=== PATIENT | male | born 1990 | race Caucasian/White ===

== ENCOUNTER 2019-07-22 13:04 | Emergency (ER) | payer BC, OTHER ==
[2019-07-22 13:55] VITALS: TEMP 99.6
[2019-07-22] MEDS ORDERED: KETOROLAC 30 MG/ML 1 ML VIAL IVP STA (16:28)
--- NOTE | 2019-07-22 16:28 | ED ---
General Adult HPI - General Chief complaint: Headache Stated complaint: stiff neck, headache Time Seen by Provider: 07/22/19 15:45 Source: patient Mode of arrival: ambulatory Limitations: no limitations - History of Present Illness Initial comments: Patient is a 29-year-old male presenting to emergency Department with a chief complaint of a headache and fever. Patient reports he developed the sudden onset of respiratory type symptoms including a sore throat, rhinorrhea and sinus congestion about 3 days ago and have not resolved. Patient reports she also developed a headache within the period along with neck stiffnes s especially with left and right rotation. Patient reports that he felt chills but never actually measured his temperature. Patient denies any chest pain, abdominal pain, nausea vomiting or diarrhea. Patient does report a productive cough with yellow sputum production. Patient is not a smoker. Patient reports taking Tylenol with minimal improvement. Patient does report a headache near the frontal maxillary sinus. Patient denies focal neural deficits or altered mental status. Patient does report photosensitivity but states that he does have migraine history. - Related Data Previous Rx's Medication Instructions Recorded Amoxicillin/Potassium Clav 1 tab PO Q12HR #14 tab 07/22/19 [Augmentin 875-125 Tablet] Allergies Allergy/AdvReac Type Severity Reaction Status Date / Time No Known Allergies Allergy Verified 07/22/19 13:54 Review of Systems ROS Statement: Those systems with pertinent positive or pertinent negative responses have been documented in the HPI. ROS Other: All systems not noted in ROS Statement are negative. Past Medical History Past Medical History: No Reported History History of Any Multi-Drug Resistant Organisms: None Reported Past Surgical History: No Surgical Hx Reported Past Psychological History: No Psychological Hx Reported Smoking Status: Never smoker Past Alcohol Use History: Occasional Past Drug Use History: None Reported General Exam Limitations: no limitations General appearance: alert, in no apparent distress Head exam: Present: atraumatic, normocephalic, normal inspection Eye exam: Present: normal appearance, PERRL, EOMI Pupils: Present: normal accommodation ENT exam: Present: normal exam, normal oropharynx, mucous membranes moist, TM's normal bilaterally, normal external ear exam, other (Frontal sinus tenderness. Only mild tenderness in the maxillary sinus.) Neck exam: Present: normal inspection, full ROM. Absent: meningismus, lymphadenopathy, other (No nuchal rigidity. Negative Brudzinski sign. Negative Kernig sign.) Respiratory exam: Present: normal lung sounds bilaterally Cardiovascular Exam: Present: regular rate, normal rhythm, normal heart sounds Extremities exam: Present: normal inspection, full ROM, normal capillary refill, other (+2 dorsalis pedis and posterior tibialis bilaterally.) Back exam: Present: normal inspection, full ROM Neurological exam: Present: alert, oriented X3 Psychiatric exam: Present: normal affect, normal mood Skin exam: Present: warm, intact, normal color Course Vital Signs 07/22/19 07/22/19 13:50 18:06 Temperature 99.6 F Pulse Rate 82 80 Respiratory 18 16 Rate Blood Pressure 142/82 134/80 O2 Sat by Pulse 96 98 Oximetry Medical Decision Making - Medical Decision Making Patient is a 29-year-old male presenting to the emergency department with a chief complaint of a headache. Patient reports that he has developed a headache over the past 3 days which initially started with an upper respiratory infection. Patient continues to have a sore throat and intermittent congestion or rhinorrhea. Patient reports the headache is localized near the frontal sinus. Patient does report mild photosensitivity but no nausea or vomiting. Patient reports he had a fever but never actually measured at home. In the ED patient is afebrile. Patient does report a stiff neck and physical examination no nuchal rigidity was appreciated. Patient has negative Kernig's and Brudzinski sign. Patient also reported a cough with no sputum production. Chest x-ray is unremarkable. I have low suspicion for meningitis. I suspect the patient to have a sinus type headache due to possible sinusitis. His headache has only been ongoing for 3 days which is still most likely a viral cause to the sinusitis. I prescribed the patient Augmentin on watch and wait bases. Patient advised to take the medication if his symptoms do not improve over the next few days. Patient given Reglan, Benadryl and Toradol in the ED. Patient advised to alternate between Tylenol and ibuprofen for pain control. Patient advised to use [id number] decongestants. Patient advised to follow with primary care. Strict return parameters were thoroughly discussed with patient was understanding and agreeable. Case discussed with physician. - Lab Data Result diagrams: 07/22/19 17:15 07/22/19 17:15 Lab Results 07/22/19 07/22/19 07/22/19 Range/Units 17:15 17:15 17:15 WBC 5.7 (3.8-10.6) k/uL RBC 5.16 (4.30-5.90) m/uL Hgb 15.9 (13.0-17.5) gm/dL Hct 45.2 (39.0-53.0) % MCV 87.6 (80.0-100.0) fL MCH 30.8 (25.0-35.0) pg MCHC 35.1 (31.0-37.0) g/dL RDW 15.9 H (11.5-15.5) % Plt Count 165 (150-450) k/uL Neutrophils % 61 % Lymphocytes % 24 % Monocytes % 7 % Eosinophils % 2 % Basophils % 2 % Neutrophils # 3.5 (1.3-7.7) k/uL Lymphocytes # 1.4 (1.0-4.8) k/uL Monocytes # 0.4 (0-1.0) k/uL Eosinophils # 0.1 (0-0.7) k/uL Basophils # 0.1 (0-0.2) k/uL Sodium 140 (137-145) mmol/L Potassium 4.3 (3.5-5.1) mmol/L Chloride 100 (98-107) mmol/L Carbon Dioxide 27 (22-30) mmol/L Anion Gap 13 mmol/L BUN 12 (9-20) mg/dL Creatinine 0.96 (0.66-1.25) mg/dL Est GFR (CKD-EPI)AfAm >90 (>60 ml/min/1.73 sqM) Est GFR (CKD-EPI)NonAf >90 (>60 ml/min/1.73 sqM) Glucose 98 (74-99) mg/dL Calcium 9.6 (8.4-10.2) mg/dL Total Bilirubin 0.7 (0.2-1.3) mg/dL AST 68 H (17-59) U/L ALT 84 H (21-72) U/L Alkaline Phosphatase 79 (38-126) U/L Total Protein 8.2 (6.3-8.2) g/dL Albumin 4.8 (3.5-5.0) g/dL Influenza Type A RNA Not Detected (Not Detectd) Influenza Type B (PCR) Not Detected (Not Detectd) Disposition Clinical Impression: Sinus headache Disposition: HOME SELF-CARE Condition: Stable Instructions (If sedation given, give patient instructions): Acute Headache (ED) Additional Instructions: Please take prescribed medication as directed. Please return to emergency department if symptoms worsen. Please follow-up with primary care. Prescriptions: Amoxicillin/Potassium Clav [Augmentin 875-125 Tablet] 1 tab PO Q12HR #14 tab Is patient prescribed a controlled substance at d/c from ED?: No Referrals: None,Stated [Primary Care Provider] - 1-2 days Time of Disposition: 17:59
--- NOTE | 2019-07-22 16:48 | XR ---
EXAMINATION TYPE: XR chest 2V DATE OF EXAM: 07/22/2019 COMPARISON: None HISTORY: 29-year-old male productive cough TECHNIQUE: PA and lateral views FINDINGS: The cardiomediastinal silhouette, aorta, and pulmonary vasculature are within normal limits. Lungs an d pleural spaces are clear. IMPRESSION: No acute cardiopulmonary process.
[2019-07-22 17:44] LABS: ALT 84 U/L (21-72); AST 68 U/L (17-59); African American GFR (CKD) >90 (>60 ml/min/1.73 sqM); Albumin 4.8 g/dL (3.5-5.0); Alkaline Phosphatase 79 U/L (38-126); Anion Gap 13 mmol/L; Blood Urea Nitrogen 12 mg/dL (9-20); Calcium 9.6 mg/dL (8.4-10.2); Carbon Dioxide 27 mmol/L (22-30); Chloride 100 mmol/L (98-107); Glucose 98 mg/dL (74-99); Potassium 4.3 mmol/L (3.5-5.1); Sodium 140 mmol/L (137-145); Total Bilirubin 0.7 mg/dL (0.2-1.3); Total Protein 8.2 g/dL (6.3-8.2)
[2019-07-22 17:45] LABS: Basophils # (A) 0.1 k/uL (0-0.2); Basophils % (A) 2 %; Eosinophils # (A) 0.1 k/uL (0-0.7); Eosinophils % (A) 2 %; HCT 45.2 % (39.0-53.0); HGB 15.9 gm/dL (13.0-17.5); Lymphocytes # (A) 1.4 k/uL (1.0-4.8); Lymphocytes % (A) 24 %; MCH 30.8 pg (25.0-35.0); MCHC 35.1 g/dL (31.0-37.0); MCV 87.6 fL (80.0-100.0); Mean Platelet Volume 8.1; Monocytes # (A) 0.4 k/uL (0-1.0); Monocytes % (A) 7 %; Neutrophils # (A) 3.5 k/uL (1.3-7.7); Neutrophils % (A) 61 %; Platelet Count 165 k/uL (150-450); RBC 5.16 m/uL (4.30-5.90); RDW 15.9 % (11.5-15.5); WBC 5.7 k/uL (3.8-10.6)
[2019-07-22] MEDS ORDERED: METOCLOPRAMIDE 5 MG/ML 2 ML VIAL IVP STA (17:46)
[2019-07-22] MEDS ORDERED: diphenhydrAMINE 50 MG/ML 1 ML VIAL IVP STA (17:46)
[2019-07-22] MEDS ORDERED: Acetaminophen-Codeine 300-30mg TAB PO STA (17:46)
[2019-07-22 18:09] VITALS: BP 134/80; PULSE 80; RESP 16
== END 2019-07-22 18:06 | disposition home or self-care (01) ==
LOC: EC 13:04
DX: R51 Headache (principal); R50.9 Fever, unspecified; R09.81 Nasal congestion; M43.6 Torticollis; R05 Cough
CPT/HCPCS: 36415; 80053; 85025; 87502; 71046; 99284; 96374; 96375; J1200; J1885

== ENCOUNTER 2021-11-23 17:57 | Observation (INO) | payer BC, OTHER ==
--- NOTE | 2021-11-23 18:21 | ED ---
General Adult HPI - General Chief complaint: Chest Pain Stated complaint: Chest pain Time Seen by Provider: 11/23/21 18:00 Source: patient, RN notes reviewed, old records reviewed Mode of arrival: wheelchair Limitations: no limitations - History of Present Illness Initial comments: This is a 31-year-old male who presents emergency Department with no significant past medical history. Patient denies diabetes hypertension high cholesterol. Patient denies any smoking history. Patient states his grandfather did at 58. Patient also states that he had a brother who had a heart attack at 34. Patient states he comes in today because he has some left-sided chest pain which is been constant for 3 days he states pressing on it definitely makes it worse or taking a deep breath deftly makes it worse. Patient states he is not short of breath ever but it hurts when he takes a deep breath on occasion. Patient states sometimes when he has the pain he has a tingling sensation in his left arm as well. Patient states he cannot make that tingling sensation come or go. Patient states currently he is not having any. Patient denies any fever chills or cough. Patient denies any abdominal pain patient denies nausea vomiting diarrhea. Patient denies any recent heavy lifting or exercising. Patient denies any recent injury or trauma. - Related Data Home Medications Medication Instructions Recorded Confirmed Ascorbic Acid [Vitamin C] 1,000 mg PO DAILY 11/23/21 11/23/21 Cyanocobalamin (Vitamin B-12) 1,000 mcg PO DAILY 11/23/21 11/23/21 [Vitamin B-12] Allergies Allergy/AdvReac Type Severity Reaction Status Date / Time No Known Allergies Allergy Verified 11/23/21 18:32 Review of Systems ROS Statement: Those systems with pertinent positive or pertinent negative responses have been documented in the HPI. ROS Other: All systems not noted in ROS Statement are negative. Past Medical History Past Medical History: No Reported History History of Any Multi-Drug Resistant Organisms: None Reported Past Surgical History: No Surgical Hx Reported Past Psychological History: No Psychological Hx Reported Smoking Status: Never smoker Past Alcohol Use History: Occasional Past Drug Use History: None Reported General Exam - General Exam Comments Initial Comments: GENERAL: Patient is well-developed and well-nourished. Patient is nontoxic and well- hydrated and is in no acute distress. ENT: Neck is soft and supple. No significant lymphadenopathy is noted. Oropharynx is clear. Moist mucous membranes. Neck has full range of motion without eliciting any pain. EYES: The sclera were anicteric and conjunctiva were pink and moist. Extraocular movements were intact and pupils were equal round and reactive to light. Eyelids were unremarkable. PULMONARY: Unlabored respirations. Good breath sounds bilaterally. No audible rales rhonchi or wheezing was noted. CARDIOVASCULAR: There is a regular rate and rhythm without any murmurs gallops or rubs. Chest pain is reproducible when pressing on the lateral aspect of his left chest. ABDOMEN: Soft and nontender with normal bowel sounds. SKIN: Skin is clear with no lesions or rashes and otherwise unremarkable. NEUROLOGIC: Patient is alert and oriented x3. Cranial nerves II through XII are grossly intact. Motor and sensory are also intact. Normal speech, volume and content. Symmetrical smile. MUSCULOSKELETAL: Normal extremities with adequate strength and full range of motion. LYMPHATICS: No significant lymphadenopathy is noted PSYCHIATRIC: Patient does appear mildly anxious Limitations: no limitations Course Vital Signs 11/23/21 11/23/21 17:59 18:17 Temperature 98.5 F 98.3 F Pulse Rate 97 93 Respiratory 16 14 Rate Blood Pressure 155/90 152/89 O2 Sat by Pulse 98 99 Oximetry Medical Decision Making - Medical Decision Making EKG shows normal sinus rhythm at 89 bpm IA interval 240 QRS 130 QT interval 370 QTC is 450. Patient's EKG shows a right bundle guido block. Chest x-ray shows no acute abnormalities. Patient's troponin was mildly bumped spoke with some physicians agreed to keep the patient and admitted the patient wrote admitting orders consult cardiology I started the patient heparin because of his elevated troponin and in stable angina picture. - Lab Data Result diagrams: 11/23/21 19:29 11/23/21 19:29 Lab Results 11/23/21 11/23/21 11/23/21 Range/Units 19:29 19:29 19:29 WBC 6.9 (3.8-10.6) k/uL RBC 4.93 (4.30-5.90) m/uL Hgb 16.1 (13.0-17.5) gm/dL Hct 46.6 (39.0-53.0) % MCV 94.6 (80.0-100.0) fL MCH 32.7 (25.0-35.0) pg MCHC 34.5 (31.0-37.0) g/dL RDW 13.3 (11.5-15.5) % Plt Count 211 (150-450) k/uL MPV 9.3 Neutrophils % 53 % Lymphocytes % 37 % Monocytes % 5 % Eosinophils % 1 % Basophils % 1 % Neutrophils # 3.7 (1.3-7.7) k/uL Lymphocytes # 2.5 (1.0-4.8) k/uL Monocytes # 0.3 (0-1.0) k/uL Eosinophils # 0.1 (0-0.7) k/uL Basophils # 0.1 (0-0.2) k/uL PT 10.5 (9.0-12.0) sec INR 1.0 (<1.2) APTT 23.8 (22.0-30.0) sec Sodium 140 (137-145) mmol/L Potassium 3.9 (3.5-5.1) mmol/L Chloride 103 (98-107) mmol/L Carbon Dioxide 26 (22-30) mmol/L Anion Gap 11 mmol/L BUN 16 (9-20) mg/dL Creatinine 1.15 (0.66-1.25) mg/dL Est GFR (CKD-EPI)AfAm >90 (>60 ml/min/1.73 sqM) Est GFR (CKD-EPI)NonAf 84 (>60 ml/min/1.73 sqM) Glucose 98 (74-99) mg/dL Calcium 9.9 (8.4-10.2) mg/dL Magnesium 2.0 (1.6-2.3) mg/dL Total Bilirubin 0.9 (0.2-1.3) mg/dL AST 140 H (17-59) U/L ALT 200 H (4-49) U/L Alkaline Phosphatase 71 (38-126) U/L Troponin I (0.000-0.034) ng/mL Total Protein 8.5 H (6.3-8.2) g/dL Albumin 4.9 (3.5-5.0) g/dL 11/23/21 Range/Units 19:29 WBC (3.8-10.6) k/uL RBC (4.30-5.90) m/uL Hgb (13.0-17.5) gm/dL Hct (39.0-53.0) % MCV (80.0-100.0) fL MCH (25.0-35.0) pg MCHC (31.0-37.0) g/dL RDW (11.5-15.5) % Plt Count (150-450) k/uL MPV Neutrophils % % Lymphocytes % % Monocytes % % Eosinophils % % Basophils % % Neutrophils # (1.3-7.7) k/uL Lymphocytes # (1.0-4.8) k/uL Monocytes # (0-1.0) k/uL Eosinophils # (0-0.7) k/uL Basophils # (0-0.2) k/uL PT (9.0-12.0) sec INR (<1.2) APTT (22.0-30.0) sec Sodium (137-145) mmol/L Potassium (3.5-5.1) mmol/L Chloride (98-107) mmol/L Carbon Dioxide (22-30) mmol/L Anion Gap mmol/L BUN (9-20) mg/dL Creatinine (0.66-1.25) mg/dL Est GFR (CKD-EPI)AfAm (>60 ml/min/1.73 sqM) Est GFR (CKD-EPI)NonAf (>60 ml/min/1.73 sqM) Glucose (74-99) mg/dL Calcium (8.4-10.2) mg/dL Magnesium (1.6-2.3) mg/dL Total Bilirubin (0.2-1.3) mg/dL AST (17-59) U/L ALT (4-49) U/L Alkaline Phosphatase (38-126) U/L Troponin I 0.045 H* (0.000-0.034) ng/mL Total Protein (6.3-8.2) g/dL Albumin (3.5-5.0) g/dL Critical Care Time Critical Care Time: Yes Total Critical Care Time: 35 Disposition Clinical Impression: Unstable angina pectoris Disposition: ADMITTED IP TO THIS [facility] Referrals: None,Stated [Primary Care Provider] - 1-2 days Time of Disposition: 20:21
--- NOTE | 2021-11-23 19:50 | XR ---
EXAMINATION TYPE: XR chest 2V DATE OF EXAM: 11/23/2021 COMPARISON: 07/22/2019 HISTORY: 31 years Male. STUDY INDICATION GIVEN: Chest Pain . TECHNIQUE: Frontal and lateral chest radiographs. IMPRESSION: No focal airspace disease, pneumothorax or pleural effusion. The cardiomediastinal silhouette is normal in appearance. No acute osseous abnormalities seen.
[2021-11-23 19:58] LABS: Basophils # (A) 0.1 k/uL (0-0.2); Basophils % (A) 1 %; Eosinophils # (A) 0.1 k/uL (0-0.7); Eosinophils % (A) 1 %; HCT 46.6 % (39.0-53.0); HGB 16.1 gm/dL (13.0-17.5); Lymphocytes # (A) 2.5 k/uL (1.0-4.8); Lymphocytes % (A) 37 %; MCH 32.7 pg (25.0-35.0); MCHC 34.5 g/dL (31.0-37.0); MCV 94.6 fL (80.0-100.0); Mean Platelet Volume 9.3; Monocytes # (A) 0.3 k/uL (0-1.0); Monocytes % (A) 5 %; Neutrophils # (A) 3.7 k/uL (1.3-7.7); Neutrophils % (A) 53 %; Platelet Count 211 k/uL (150-450); RBC 4.93 m/uL (4.30-5.90); RDW 13.3 % (11.5-15.5); WBC 6.9 k/uL (3.8-10.6)
[2021-11-23 20:03] LABS: ALT 200 U/L (4-49); AST 140 U/L (17-59); African American GFR (CKD) >90 (>60 ml/min/1.73 sqM); Albumin 4.9 g/dL (3.5-5.0); Alkaline Phosphatase 71 U/L (38-126); Anion Gap 11 mmol/L; Blood Urea Nitrogen 16 mg/dL (9-20); Calcium 9.9 mg/dL (8.4-10.2); Carbon Dioxide 26 mmol/L (22-30); Chloride 103 mmol/L (98-107); Glucose 98 mg/dL (74-99); Non-African American GFR(CKD) 84 (>60 ml/min/1.73 sqM); Potassium 3.9 mmol/L (3.5-5.1); Sodium 140 mmol/L (137-145); Total Bilirubin 0.9 mg/dL (0.2-1.3); Total Protein 8.5 g/dL (6.3-8.2)
[2021-11-23 20:08] LABS: Partial Thromboplastin Time 23.8 sec (22.0-30.0); Prothrombin Time 10.5 sec (9.0-12.0)
[2021-11-23] MEDS ORDERED: HEPARIN SODIUM 1,000 UN/ML (10ML VL) IV ONE (20:22)
[2021-11-23] MEDS ORDERED: NITROGLYCERIN SL TABS 0.4 MG TAB SUBLINGUAL PRN (20:22)
[2021-11-23] MEDS: HEPARIN SOD,PORK IN 0.45% NACL 25,000 UNIT in 0.45% NACL 1 250ML.BAG IV SCH (20:55)
[2021-11-24] MEDS: ALPRAZolam 0.5 MG TAB PO PRN ×2 (01:36→21:39)
[2021-11-24] MEDS: NITROGLYCERIN OINT 1 INCH/GM PACKET TOPICAL SCH ×4 (01:36→18:10)
--- NOTE | 2021-11-24 02:41 | P.HPIM ---
History of Present Illness H&P Date: 11/23/21 Chief Complaint: chest pain 31 year old male with no significant past medical history he comes in with constant left sided chest pain of 3-4 days duration , due to non resolving he decided to come in for evaluation , he denies any cardiac history , he is active playing sports with no limitations due to chest pain , last time he was playing soccer was Sunday , which he tolerated well, however next day while watching TV he experienced sudden onset left sided chest pain , just below the left rib cage, non resolving worse with moving and deep breath, no associated nausea , vomiting , SOB, sweating or palpitations, however he was getting light headed, he remained home resting since then , and pain is non resolving so he is presenting today for evaluation he denies smoking or drugs, but admits to daily alcohol. blood work showed elevated liver enzymes, and elevated trops. , CXR no acute pathology EKG NSR, and right bundle branch block patient reports family history of premature CAD in his grandfather. he otherwise denies any fever, chills, URI symptoms., abd pain GI or urinary changes. Review of Systems Pertinent positives as noted in HPI. All other systems were reviewed and are negative Past Medical History Past Medical History: No Reported History History of Any Multi-Drug Resistant Organisms: None Reported Past Surgical History: No Surgical Hx Reported Past Psychological History: No Psychological Hx Reported Smoking Status: Never smoker Past Alcohol Use History: Occasional Past Drug Use History: None Reported - Past Family History family Additional Family Medical History / Comment(s): premature CAD in grandfather Medications and Allergies Home Medications Medication Instructions Recorded Confirmed Type Ascorbic Acid [Vitamin C] 1,000 mg PO DAILY 11/23/21 11/23/21 History Cyanocobalamin (Vitamin B-12) 1,000 mcg PO DAILY 11/23/21 11/23/21 History [Vitamin B-12] Allergies Allergy/AdvReac Type Severity Reaction Status Date / Time No Known Allergies Allergy Verified 11/23/21 18:32 Physical Exam Vitals: Vital Signs Temp Pulse Resp BP Pulse Ox 11/23/21 18:17 98.3 F 93 14 152/89 99 11/23/21 17:59 98.5 F 97 16 155/90 98 Intake and Output 11/23/21 11/23/21 11/23/21 06:59 14:59 22:59 Other: Weight 90.718 kg Constitutional: No acute distress, conversant, pleasant Eyes: Anicteric sclerae, moist conjunctiva, Pupils equal round reactive to light ENMT: NC/AT Oropharynx clear, no erythema, or exudates Neck: Supple, FROM, no masses, or JVD No carotid bruits No thyromegaly Lungs: Clear to auscultation Clear to percussion Normal respiratory effort, no accessory muscle use Cardiovascular: Heart regular in rate and rhythm, No murmurs, gallops, or rubs No peripheral edema Abdominal: Soft Nontender, no guarding, rebound or rigidity Abdomen moving with respiration Normoactive bowel sounds No hepatomegaly, No splenomegaly No palpable mass No abdominal wall hernia noted Skin: Normal temperature, tone, texture, turgor No induration No subcutaneous nodules No rash, lesions No ulcers Extremities: reproducible pain with palpation of the left lower rib cage, no skin changes , No digital cyanosis No clubbing Pedal pulses intact and symmetrical Radial pulses intact and symmetrical No calf tenderness Psychiatric: Alert and oriented to person, place and time Appropriate affect fair judgement Neuro Muscles Strength 5/5 in all 4 extremities Sensation to light touch grossly present throughout Cranial nerves II-XII grossly intact No focal sensory deficits Lymphatics: no palpable cervical or supraclavicular , or inguinal lymph nodes Results CBC & Chem 7: 11/23/21 19:29 11/23/21 19:29 Labs: Abnormal Lab Results - Last 24 Hours (Table) 11/23/21 11/23/21 Range/Units 19:29 19:29 AST 140 H (17-59) U/L ALT 200 H (4-49) U/L Troponin I 0.045 H* (0.000-0.034) ng/mL Total Protein 8.5 H (6.3-8.2) g/dL Assessment and Plan Assessment: atypical chest pain , unlikely cardiac. most likely musculoskeletal trend trops pain control patient was initiated on ASA, nitro and heparin drip in the ED monitor vital signs cardio eval Xanax for anxiety follow up AM labs acute transaminitis patient counseled to quit alcohol check hepatitis panel follow up OP full code DVT on heparin drip for ACS anticipated length of stay < 2 midnights
[2021-11-24 03:32] LABS: African American GFR (CKD) >90 (>60 ml/min/1.73 sqM); Anion Gap 10 mmol/L; Blood Urea Nitrogen 16 mg/dL (9-20); Calcium 9.7 mg/dL (8.4-10.2); Carbon Dioxide 25 mmol/L (22-30); Chloride 101 mmol/L (98-107); Glucose 95 mg/dL (74-99); Non-African American GFR(CKD) >90 (>60 ml/min/1.73 sqM); Sodium 136 mmol/L (137-145)
[2021-11-24 03:44] LABS: Basophils # (A) 0.1 k/uL (0-0.2); Basophils % (A) 1 %; Eosinophils # (A) 0.1 k/uL (0-0.7); Eosinophils % (A) 1 %; HCT 46.1 % (39.0-53.0); HGB 15.6 gm/dL (13.0-17.5); Lymphocytes # (A) 2.2 k/uL (1.0-4.8); Lymphocytes % (A) 38 %; MCH 32.4 pg (25.0-35.0); MCHC 33.8 g/dL (31.0-37.0); Mean Platelet Volume 8.5; Monocytes # (A) 0.3 k/uL (0-1.0); Monocytes % (A) 6 %; Neutrophils % (A) 51 %; Platelet Count 191 k/uL (150-450); RDW 13.4 % (11.5-15.5); WBC 5.8 k/uL (3.8-10.6)
[2021-11-24] MEDS ORDERED: HEPARIN SODIUM 1,000 UN/ML (10ML VL) IV PRN (04:49)
[2021-11-24] MEDS ORDERED: ASPIRIN 325 MG TAB PO SCH (09:00)
[2021-11-24 11:12] LABS: Chol/HDL Ratio 6.03 Ratio; LDL Cholesterol,Calculated 220.6 mg/dL (0.0-131.0)
--- NOTE | 2021-11-24 12:59 | P.CRDCN ---
History of Present Illness Consult date: 11/24/21 History of present illness: HISTORY OF PRESENT ILLNESS: This is a 31-year-old male with no significant past medical history. The patient does report frequent alcohol use of 2-3 drinks 5-6 days out of the week. He is a nonsmoker. 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 We have been asked to see the patient in consultation for chest pain. Patient examined at the bedside. Patient states he began having chest pain on Sunday. He states the p ain has been pretty constant since that time. He is currently rating it a forced/10. He describes the pain as a deep squeezing sensation. He does report the pain is worse with deep inspiration on occasion. He denies increased pain with sitting forward. The patient denies any recent illness. He currently denies shortness of breath. Denies palpitations. He does report a family history of coronary artery disease. He states his grandpa in his 40s from an CA. He also states his brother who is 34 years old had a CA 6 or 8 months ago however he does not think he had stenting performed. EKG reveals sinus mechanism with right bundle branch block. Very minimal diffuse ST elevation. Chest xray negative for acute process Laboratory data: WBC 5.8. Hemoglobin 15.6. Platelet count 191. Sodium 136. Potassium 4.0. BUN 16. Creatinine 1.07. Magnesium 2.0. Troponin 0.045. 0.012. 0.012. Current home cardiac medications include none REVIEW OF SYSTEMS: At the time of my exam: CONSTITUTIONAL: Denies fever or chills. HEENT: Denies blurred vision, vision changes, or eye pain. Denies hemoptysis CARDIOVASCULAR: Denies chest pain. Denies orthopnea. Denies PND. Denies palpitations RESPIRATORY: Denies shortness of breath. GASTROINTESTINAL: Denies abdominal pain. Denies nausea or vomiting. HEMATOLOGIC: Denies bleeding disorders. GENITOURINARY: Denies any blood in urine. SKIN: Denies pruitis. Denies rash. PHYSICAL EXAM: VITAL SIGNS: Reviewed. GENERAL: Well-developed in no acute distress. HEENT: Head is normocephalic. Pupils are equal, round. Sclerae anicteric. Mucous membranes of the mouth are moist. Neck supple. No JVD or thyromegaly LUNGS: Respirations even and unlabored. Lungs essentially clear to auscultation bilaterally. HEART: Regular rate and rhythm. S1 and S2 heard. ABDOMEN: Soft. Nondistended. Nontender. EXTREMITIES: Normal range of motion. No clubbing or cyanosis. Peripheral pulses intact. No lower extremity edema NEUROLOGIC: Awake and alert. Oriented x 3. ASSESSMENT: Chest pain with abnormal troponin x 1, rule out carditis, rule out underlying coronary artery disease Frequent alcohol use Elevated LFTs Family history of coronary artery disease PLAN: Obtain 2D echo to assess cardiac structure and function Obtain CRP and ESR Continue IV heparin Continue aspirin Patient may require cardiac cath to rule out underlying CAD Recommend abstinence from alcohol Further recommendations pending patient course Nurse practitioner note has been reviewed by physician. Signing provider agrees with the documented findings, assessment, and plan of care. Past Medical History Past Medical History: No Reported History History of Any Multi-Drug Resistant Organisms: None Reported Past Surgical History: No Surgical Hx Reported Past Psychological History: No Psychological Hx Reported Smoking Status: Never smoker Past Alcohol Use History: Occasional Past Drug Use History: None Reported - Past Family History family Additional Family Medical History / Comment(s): premature CAD in grandfather Medications and Allergies Home Medications Medication Instructions Recorded Confirmed Type Ascorbic Acid [Vitamin C] 1,000 mg PO DAILY 11/23/21 11/23/21 History Cyanocobalamin (Vitamin B-12) 1,000 mcg PO DAILY 11/23/21 11/23/21 History [Vitamin B-12] Allergies Allergy/AdvReac Type Severity Reaction Status Date / Time No Known Allergies Allergy Verified 11/23/21 18:32 Physical Exam Vitals: Vital Signs Temp Pulse Resp BP Pulse Ox 11/24/21 06:56 64 18 112/78 95 11/24/21 04:00 64 18 146/94 97 11/24/21 01:39 71 18 117/90 93 L 11/23/21 23:11 79 16 134/90 95 11/23/21 21:02 78 18 124/73 95 11/23/21 18:17 98.3 F 93 14 152/89 99 11/23/21 17:59 98.5 F 97 16 155/90 98 Intake and Output 11/23/21 11/24/21 11/24/21 22:59 06:59 14:59 Intake Total 80.333 Balance 80.333 Intake: Intake, IV Titration 80.333 Amount Heparin Sod,Pork in 0.45% 80.333 NaCl 25,000 unit In 0.45 % NaCl 1 250ml.bag @ 11. 023 UNITS/KG/HR 10 mls/hr IV .Q24H [facility] Rx#: [id number] Other: Weight 90.718 kg Results 11/24/21 02:34 11/24/21 02:34 Cardiac Enzymes 11/23/21 11/23/21 11/23/21 Range/Units 19:29 19:29 22:44 AST 140 H (17-59) U/L Troponin I 0.045 H* <0.012 (0.000-0.034) ng/mL 11/24/21 Range/Units 02:34 AST (17-59) U/L Troponin I <0.012 (0.000-0.034) ng/mL Coagulation 11/23/21 11/24/21 Range/Units 19:29 02:34 PT 10.5 (9.0-12.0) sec APTT 23.8 33.9 H (22.0-30.0) sec CBC 11/23/21 11/24/21 Range/Units 19:29 02:34 WBC 6.9 5.8 (3.8-10.6) k/uL RBC 4.93 4.80 (4.30-5.90) m/uL Hgb 16.1 15.6 (13.0-17.5) gm/dL Hct 46.6 46.1 (39.0-53.0) % Plt Count 211 191 (150-450) k/uL Comprehensive Metabolic Panel 11/23/21 11/24/21 Range/Units 19:29 02:34 Sodium 140 136 L (137-145) mmol/L Potassium 3.9 4.0 (3.5-5.1) mmol/L Chloride 103 101 (98-107) mmol/L Carbon Dioxide 26 25 (22-30) mmol/L BUN 16 16 (9-20) mg/dL Creatinine 1.15 1.07 (0.66-1.25) mg/dL Glucose 98 95 (74-99) mg/dL Calcium 9.9 9.7 (8.4-10.2) mg/dL AST 140 H (17-59) U/L ALT 200 H (4-49) U/L Alkaline Phosphatase 71 (38-126) U/L Total Protein 8.5 H (6.3-8.2) g/dL Albumin 4.9 (3.5-5.0) g/dL Current Medications Generic Name Dose Route Start Last Admin Trade Name Freq PRN Reason Stop Dose Admin Alprazolam 0.5 mg 11/24/21 00:18 11/24/21 01:36 Alprazolam 0.5 Mg Tab PO 0.5 mg TID PRN Administration Anxiety Aspirin 325 mg 11/24/21 09:00 Aspirin 325 Mg Tab PO DAILY [facility] Heparin Sodium (Porcine) 0 unit 11/24/21 04:49 11/24/21 04:54 Heparin Sodium 1,000 Un/Ml (10ml Vl) IV 4,500 unit Q6HR PRN Administration Low PTT Protocol Heparin Sodium/Sodium Chloride 250 mls @ 10 mls/hr 11/23/21 20:30 11/24/21 04:57 25,000 unit/ Sodium Chloride IV 14.023 units/kg/hr .Q24H [facility] 12.721 mls/hr Titration Protocol 11.023 UNITS/KG/HR Nitroglycerin 0.4 mg 11/23/21 20:22 Nitroglycerin Sl Tabs 0.4 Mg Tab SUBLINGUAL Q5M PRN Chest Pain Nitroglycerin 1 inch 11/24/21 00:00 11/24/21 01:36 Nitroglycerin Oint 1 Inch/Gm Packet TOPICAL 1 inch Q6HR [facility] Administration Intake and Output 11/23/21 11/24/21 11/24/21 22:59 06:59 14:59 Intake Total 80.333 Balance 80.333 Intake: Intake, IV Titration 80.333 Amount Heparin Sod,Pork in 0.45% 80.333 NaCl 25,000 unit In 0.45 % NaCl 1 250ml.bag @ 11. 023 UNITS/KG/HR 10 mls/hr IV .Q24H [facility] Rx#: [id number] Other: Weight 90.718 kg 11/24/21 02:34 11/24/21 02:34
[2021-11-24] MEDS: ACETAMINOPHEN TAB 500 MG TAB PO PRN ×2 (13:09→18:08)
[2021-11-24 15:03] LABS: Hepatitis A Antibody IgM Nonreactive (Nonreactive); Hepatitis B Core IgM Nonreactive (Nonreactive); Hepatitis B Surface Antigen Nonreactive (Nonreactive); Hepatitis C IgG Antibody Nonreactive (Nonreactive)
--- NOTE | 2021-11-24 15:55 | P.PN ---
Subjective Patient was examined in the emergency department. He denies any active chest pain during my examination. He does states that it does come and go at times does not radiate to his left arm or to his jaw. He does describe the pain as squeezing in nature however denies any diaphoresis or palpitations. He does endorse significant family history in his grandfather who had a heart attack in his 30s and is brother who also had a WA in his 30s. Objective - Vital Signs Vital signs: Vital Signs Temp 98.3 F 11/23/21 18:17 Pulse 78 11/24/21 15:28 Resp 18 11/24/21 15:28 BP 109/71 11/24/21 15:28 Pulse Ox 99 11/24/21 15:28 Intake & Output 11/23/21 11/24/21 11/24/21 18:59 06:59 18:59 Intake Total 80.333 Balance 80.333 Weight 90.718 kg 90.718 kg Intake: Intake, IV Titration 80.333 Amount Heparin Sod,Pork in 0.45% 80.333 NaCl 25,000 unit In 0.45 % NaCl 1 250ml.bag @ 11. 023 UNITS/KG/HR 10 mls/hr IV .Q24H [facility] Rx#: [id number] - Exam Constitutional: No acute distress, conversant, pleasant Eyes: Anicteric sclerae, moist conjunctiva, Pupils equal round reactive to light ENMT: NC/AT Oropharynx clear, no erythema, or exudates Neck: Supple, FROM, no masses, or JVD No carotid bruits No thyromegaly Lungs: Clear to auscultation Clear to percussion Normal respiratory effort, no accessory muscle use Cardiovascular: Heart regular in rate and rhythm, No murmurs, gallops, or rubs No peripheral edema Abdominal: Soft Nontender, no guarding, rebound or rigidity Abdomen moving with respiration Normoactive bowel sounds No hepatomegaly, No splenomegaly No palpable mass No abdominal wall hernia noted Skin: Normal temperature, tone, texture, turgor No induration No subcutaneous nodules No rash, lesions No ulcers Extremities: reproducible pain with palpation of the left lower rib cage, no skin changes , No digital cyanosis No clubbing Pedal pulses intact and symmetrical Radial pulses intact and symmetrical No calf tenderness Psychiatric: Alert and oriented to person, place and time Appropriate affect fair judgement - Labs CBC & Chem 7: 11/24/21 02:34 11/24/21 02:34 Labs: Abnormal Lab Results - Last 24 Hours (Table) 11/23/21 11/23/21 11/24/21 Range/Units 19:29 19:29 02:34 APTT (22.0-30.0) sec Sodium 136 L (137-145) mmol/L AST 140 H (17-59) U/L ALT 200 H (4-49) U/L Troponin I 0.045 H* (0.000-0.034) ng/mL Total Protein 8.5 H (6.3-8.2) g/dL Triglycerides 294.00 H (0.00-149.00) mg/dL Cholesterol 335.00 H (0.00-200.00) mg/dL LDL Cholesterol, Calc 220.6 H (0.0-131.0) mg/dL VLDL Cholesterol, Calc 58.80 H (5.00-40.00) mg/dL 11/24/21 11/24/21 Range/Units 02:34 10:17 APTT 33.9 H 51.3 H (22.0-30.0) sec Sodium (137-145) mmol/L AST (17-59) U/L ALT (4-49) U/L Troponin I (0.000-0.034) ng/mL Total Protein (6.3-8.2) g/dL Triglycerides (0.00-149.00) mg/dL Cholesterol (0.00-200.00) mg/dL LDL Cholesterol, Calc (0.0-131.0) mg/dL VLDL Cholesterol, Calc (5.00-40.00) mg/dL Assessment and Plan Assessment: Assessment: #1 chest pain rule out ACS versus [place] skeletal #2 obese #3 elevated cardiac troponin rule out ACS versus demand ischemia? Plan: -Admitted to medicine for close monitoring -Obtain stat EKG if chest pain -Risk stratified patient with lipid profile which is showing an LDL 220, triglyceride 294 -Obtain hemoglobin A1c -EKG showing nonspecific changes including RBB and 2-D echocardiogram pending -Cardiology on board, patient does have significant risk factors including family -DVT prophylaxis patient currently on heparin drip
[2021-11-24] MEDS: ASPIRIN 81 MG PO SCH (16:44)
--- NOTE | 2021-11-24 17:47 | ECHOF ---
Referral Reason:lv function, abnormal troponins MEASUREMENTS -------- HEIGHT: 172.7 cm WEIGHT: 90.7 kg BP: 112/78 IVSd: 1.2 cm (0.6 - 1.1) LVIDd: 4.7 cm (3.9 - 5.3) LVPWd: 1.1 cm (0.6 - 1.1) EDV(Teich): 105 ml IVSs: 1.6 cm LVIDs: 3.1 cm LVPWs: 1.5 cm %IVS Thck: 39 % ESV(Teich): 37 ml EF(Teich): 65 % %FS: 35 % SV(Teich): 68 ml LA Diam: 3.3 cm (2.7 - 3.8) RVIDd: 2.8 cm (< 3.3) LALs A4C: 4.9 cm LAAs A4C: 16.7 cm LAESV A-L A4C: 48 ml LAESV MOD A4C: 44 ml LALs A2C: 5.1 cm LAAs A2C: 16.0 cm LAESV A-L A2C: 43 ml LAESV MOD A2C: 41 ml LAESV(A-L): 46 ml LAESV Index (A-L): 22.63 ml/m Ao Diam: 3.6 cm (2.0 - 3.7) AV Cusp: 2.6 cm (1.5 - 2.6) EPSS: 0.6 cm MV E Edvin: 0.97 m/s MV DecT: 218 ms MV Dec [place]: 4.4 m/s MV A Edvin: 0.54 m/s MV E/A Ratio: 1.80 MV PHT: 63 ms AV Vmax: 1.15 m/s AV maxP.25 mmHg TR Vmax: 1.67 m/s TR maxP.18 mmHg MV EF SLOPE: 143.57 mm/s (70 - 150) MV EXCURSION: 14.64 mm (> 18.000) FINDINGS -------- Sinus rhythm. This was a technically adequate study. The left ventricular size is normal. There is borderline concentric left ventricular hypertrophy. Overall left ventricular systolic function is normal with, an EF between 60 - 65 %. The right ventricle is normal in size. Normal LA size by volume 22+/-6 ml/m2. The right atrium is normal in size. Interatrial and interventricular septum intact. The aortic valve is trileaflet, and appears structurally normal. No aortic stenosis or regurgitation. The mitral valve is normal. Trace tricuspid regurgitation present. The pulmonic valve is normal. The aortic root size is normal. Normal inferior vena cava with normal inspiratory collapse consistent with estimated right atrial pre ssure of 5 mmHg. There is no pericardial effusion. CONCLUSIONS -------- 1. The left ventricular size is normal. 2. There is borderline concentric left ventricular hypertrophy. 3. Overall left ventricular systolic function is normal with, an EF between 60 - 65 %. 4. The aortic valve is trileaflet, and appears structurally normal. No aortic stenosis or regurgitati on. 5. Trace tricuspid regurgitation present. 6. There is no pericardial effusion. CLINICAL TRIAL ASSISTANT: Smita Vazquez RDCS
[2021-11-24] MEDS: HEPARIN SOD,PORK IN 0.45% NACL 25,000 UNIT in 0.45% NACL 1 250ML.BAG IV SCH (18:28)
[2021-11-24] MEDS ORDERED: ATORVASTATIN 80 MG TAB PO SCH (21:00)
[2021-11-25] MEDS: NITROGLYCERIN OINT 1 INCH/GM PACKET TOPICAL SCH (02:40)
[2021-11-25] MEDS ORDERED: SODIUM CHLORIDE 0.9% 1,000 ML in EMPTY BAG 1 BAG IV ONE (08:22)
[2021-11-25] MEDS: ASPIRIN 81 MG PO SCH (08:31)
[2021-11-25 08:38] LABS: ALT 200 U/L (4-49); AST 112 U/L (17-59); African American GFR (CKD) 89 (>60 ml/min/1.73 sqM); Albumin 4.5 g/dL (3.5-5.0); Albumin/Globulin Ratio 1.3; Alkaline Phosphatase 66 U/L (38-126); Anion Gap 10 mmol/L; Blood Urea Nitrogen 17 mg/dL (9-20); Carbon Dioxide 28 mmol/L (22-30); Chloride 102 mmol/L (98-107); Globulin 3.5 g/dL; Glucose 99 mg/dL (74-99); Non-African American GFR(CKD) 77 (>60 ml/min/1.73 sqM); Potassium 4.5 mmol/L (3.5-5.1); Sodium 140 mmol/L (137-145); Total Bilirubin 1.1 mg/dL (0.2-1.3)
[2021-11-25] MEDS ORDERED: SODIUM CHLORIDE 0.9% 1,000 ML IV ONE (10:00)
[2021-11-25] MEDS ORDERED: MIDAZOLAM 2 MG/2 ML VIAL IV ONE (10:18)
[2021-11-25] MEDS ORDERED: LIDOCAINE 1% INJ 10MG/ML (20 ML MDV) SQ ONE (10:20)
[2021-11-25] MEDS: VERAPAMIL SYRINGE (5 MG/10 ML) INTRAARTER ONE ×2 (10:21→10:29)
[2021-11-25] MEDS ORDERED: HEPARIN SODIUM 1,000 UN/ML (10ML VL) IV ONE (10:24)
[2021-11-25] MEDS ORDERED: ONDANSETRON 4 MG/2 ML VIAL ONE (10:27)
[2021-11-25] MEDS ORDERED: ONDANSETRON 4 MG/2 ML VIAL IVP ONE (10:29)
[2021-11-25] MEDS ORDERED: IOPAMIDOL-370 125ML BTL INJ ONE (10:30)
[2021-11-25] MEDS ORDERED: RX INFO: IV CONTRAST WAS GIVEN 1 EACH MISC MISCELLANE PRN (10:33)
--- NOTE | 2021-11-25 10:36 | P.PCN ---
Date of Procedure: 11/25/21 Operative Findings: CARDIAC CATHETERIZATION PERFORMING PHYSICIAN: Aftab Stevenson MD, RPVI PROCEDURE PERFORMED: 1. Selective right and left coronary angiogram 2. Left heart catheterization INDICATION: Acute coronary syndrome COMPLICATION: None APPROACH: Right radial artery LEVEL OF SEDATION: Moderate with a sedation length of 9 minutes PROCEDURE DESCRIPTION: After obtaining an informed consent, the patient was brought to cardiac dental laboratory assistant . Local anesthesia was performed using lidocaine subcutaneously. The right radial artery was cannulated using Seldinger technique, the guidewire passed easily, following that we advanced a 5-Ugandan sheath dilator assembly, the wire and dilator were removed and sheath was flushed. Following that, 2 mg of verapamil along with 5000 unit heparin were given. Selective right and left coronary angiogram using a 6-Ugandan JR4 and JL 3.5 catheters. Following that we did left heart catheterization using 6-Ugandan pigtail catheter. The procedure was completed there was no complication. SELECTIVE CORONARY ANGIOGRAM: The right coronary artery: Is a large caliber vessel and dominant vessel. The RCA is angiographically normal. Distally bifurcates into PDA and PLV branches and both appeared to be angiographically normal. Left main: Is angiographically normal. Bifurcates into the LCx and LAD The left circumflex: Is a large caliber vessel and nondominant vessel. The LCx is angiographically normal. Gives rises into 4 obtuse marginal branches and all appeared to be angiographically normal. The left anterior descending artery: It is a large caliber vessel. Its angiographically normal. Gives rises into the first and second diagonal branches and both appeared to be angiographically normal. HEMODYNAMICS: The LVEDP was about 18-20 mmHg without significant gradient across aortic valve CONCLUSION: 1. Normal coronary angiogram 2. Elevated left-sided filling pressure POSTPROCEDURE MANAGEMENT: Medical treatment and follow-up with the patient
[2021-11-25] MEDS ORDERED: SODIUM CHLORIDE 0.9% 1,000 ML IV SCH (10:45)
[2021-11-25] MEDS: ALPRAZolam 0.5 MG TAB PO PRN (11:00)
--- NOTE | 2021-11-25 11:48 | P.PN ---
Subjective This is a 31-year-old male with no significant past medical history. The patient does report frequent alcohol use of 2-3 drinks 5-6 days out of the week. He is a nonsmoker. 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 We have been asked to see the patient in consultation for chest pain. Patient examined at the bedside. Patient states he began having chest pain on Sunday. He states the pain has been pretty constant since that time. He is currently rating it a forced/10. He describes the pain as a deep squeezing sensation. He does report the pain is worse with deep inspiration on occasion. He denies increased pain with sitting forward. The patient denies any recent illness. He currently denies shortness of breath. Denies palpitations. He does report a family history of coronary artery disease. He states his grandpa in his 40s from an MS. He also states his brother who is 34 years old had a MS 6 or 8 months ago however he does not think he had stenting performed. 11/25/21 Patient seen and examined at bedside, no acute distress. Patient continued to have chest pain last night. He denies any shortness of breath. Labs reviewed, additional troponins were negative 2, triglycerides 294, cholesterol 235, LDL 220, HDL 55. Patient currently maintained on aspirin 81 mg daily, atorvastatin 80 mg daily. Cardiac catheterization recommended. Patient underwent cardiac catheterization with Dr. Stevenson today which revealed n ormal coronary arteries. Echocardiogram revealed EF of 6065 percent, no significant wall motion abnormalities, no pericardial effusion. PHYSICAL EXAM: VITAL SIGNS: Reviewed. GENERAL: Well-developed in no acute distress. HEENT: Neck supple. No JVD LUNGS: Respirations even and unlabored. Lungs essentially clear to auscultation bilaterally. HEART: Regular rate and rhythm. S1 and S2 heard. ABDOMEN: Soft. Nondistended. Nontender. EXTREMITIES: Normal range of motion. No clubbing or cyanosis. Peripheral pulses intact. No lower extremity edema NEUROLOGIC: Awake and alert. Oriented x 3. ASSESSMENT: Chest pain with abnormal troponin x 1, rule out pericarditis, rule out underlying coronary artery disease Status post cardiac catheterization on 11/25/21 which revealed normal coronar arteries Frequent alcohol use Elevated LFTs Family history of coronary artery disease Dyslipidemia PLAN: -Continue aspirin and atorvastatin 80mg daily -Recommend abstinence from alcohol -From a cardiology perspective, patient is stable to be discharged home today. Follow up with Dr. Stevenson in 1 week Nurse practitioner note has been reviewed by physician. Signing provider agrees with the documented findings, assessment, and plan of care. Objective - Vital Signs Vital signs: Vital Signs Temp 98.0 F 11/25/21 07:43 Pulse 68 11/25/21 07:43 Resp 20 11/25/21 07:43 BP 113/70 11/25/21 07:43 Pulse Ox 100 11/25/21 07:43 Intake & Output 11/24/21 11/25/21 11/25/21 18:59 06:59 18:59 Intake Total 169.667 100 Balance 169.667 100 Weight 90.718 kg 93.8 kg Intake: IV 100 Intake, IV Titration 169.667 Amount Heparin Sod,Pork in 0.45% 169.667 NaCl 25,000 unit In 0.45 % NaCl 1 250ml.bag @ 11. 023 UNITS/KG/HR 10 mls/hr IV .Q24H [facility] Rx#: [id number] Other: # Voids 1 - Labs CBC & Chem 7: 11/24/21 02:34 11/25/21 06:54 Labs: Abnormal Lab Results - Last 24 Hours (Table) 11/25/21 11/25/21 Range/Units 06:54 06:54 APTT 37.9 H (22.0-30.0) sec AST 112 H (17-59) U/L ALT 200 H (4-49) U/L
[2021-11-25 14:23] VITALS: BP 120/80; PULSE 77; RESP 18; TEMP 98.6
--- NOTE | 2021-11-25 15:38 | P.DS ---
Providers Date of admission: 11/23/21 20:22 Expected date of discharge: 11/25/21 Attending physician: Jesus Messina MD Consults: 11/23/21 20:22 Consult Physician Urgent Consulting Provider: [facility] Consult Reason/Comments: Chest pain, elevated troponin Do you want consulting provider notified?: Yes Primary care physician: Stated None Hospital Course: 31 year old male with no significant past medical history he comes in with constant left sided chest pain of 3-4 days duration , due to non resolving he decided to come in for evaluation , he denies any cardiac history , he is active playing sports with no limitations due to chest pain , last time he was playing soccer was Sunday , which he tolerated well, however next day while watching TV he experienced sudden onset left sided chest pain , just below the left rib cage, non resolving worse with moving and deep breath, no associated nausea , vomiting , SOB, sweating or palpitations, however he was getting light headed, he remained home resting since then , and pain is non resolving so he is presenting today for evaluation he denies smoking or drugs, but admits to daily alcohol. blood work showed elevated liver enzymes, and elevated trops. , CXR no acute pathology EKG NSR, and right bundle branch block patient reports family history of premature CAD in his grandfather. he otherwise denies any fever, chills, URI symptoms., abd pain GI or urinary changes. EKG was reviewed including his cardiac troponins and 2-D echocardiogram by cardiology team. Patient underwent cardiac catheterization today and had normal coronary arteries as per cardiology recommendation. Patient is to be discharged from their perspective and to continue with aspirin high-intensity statin 80 mg daily. I've educated the patient extensively regarding local cessation, and weight loss. He is agreeable follow-up with cardiology and PCP within 1 week of discharge. Patient has been explained to return back to the emergency department if symptoms worsen including chest pain, palpitations, nausea or vomiting. Physical examination unremarkable. Patient Condition at Discharge: Good Plan - Discharge Summary Discharge Rx Participant: No New Discharge Prescriptions: New Aspirin 81 mg PO DAILY 30 Days #30 tab Atorvastatin [Lipitor] 80 mg PO HS 30 Days #30 tab Discontinued Cyanocobalamin (Vitamin B-12) [Vitamin B-12] 1,000 mcg PO DAILY Ascorbic Acid [Vitamin C] 1,000 mg PO DAILY Discharge Medication List Aspirin 81 mg PO DAILY 30 Days #30 tab 11/25/21 [Rx] Atorvastatin [Lipitor] 80 mg PO HS 30 Days #30 tab 11/25/21 [Rx] Follow up Appointment(s)/Referral(s): Aftab Stevenson MD [STAFF PHYSICIAN] - 1 Week None,Stated [Primary Care Provider] - 1-2 days
[2021-11-25 16:46] LABS: Chol/HDL Ratio 6.11 Ratio; LDL Cholesterol,Calculated 228.9 mg/dL (0.0-131.0)
[2021-11-26] MEDS ORDERED: HEPARIN SODIUM,PORCINE 10,000 UNIT in SODIUM CHLORIDE 0.9% 1,000 ML IRRIGATION PRN (07:00)
[2021-11-26] MEDS ORDERED: HEPARIN SODIUM,PORCINE 2,500 UNIT in SODIUM CHLORIDE 0.9% 250 ML IRRIGATION PRN (07:00)
== END 2021-11-25 16:45 | disposition home or self-care (01) ==
LOC: EC 17:57 → 3SCARD 20:22 → 6NMEDSUR 11-24 13:50
PROVIDERS: ADMIT Internal Medicine; ATTEND Internal Medicine
DX: R07.89 Other chest pain (principal); R79.89 Other specified abnormal findings of blood chemistry; R20.2 Paresthesia of skin; R74.01 Elevation of levels of liver transaminase levels; R42 Dizziness and giddiness; I45.10 Unspecified right bundle-branch block; E78.5 Hyperlipidemia, unspecified; F41.9 Anxiety disorder, unspecified; Z72.89 Other problems related to lifestyle; E66.9 Obesity, unspecified; Z68.31 Body mass index [BMI] 31.0-31.9, adult; Z20.822 Contact with and (suspected) exposure to COVID-19; Z82.49 Family history of ischemic heart disease and other diseases of the circulatory system
CPT/HCPCS: 96376 ×2; 96366 ×3; 96365; 99291; 36415; 93005 ×2; 93306; 93458; 80061 ×2; 80053 ×2; 80048; 80074; 85652; 83735; 84484 ×2; 85025 ×2; 85610; 85730 ×3; 86140; 83721; 83036; 87635; 71046; G0378 ×4; C1894; J2250; J2405; J2001; J1644 ×5; Q9967

== ENCOUNTER 2022-10-03 10:08 | Observation (INO) | payer SELFPAY ==
[2022-10-03] MEDS ORDERED: MORPHINE SULFATE 4 MG/ML SYRINGE IV STA (10:43)
[2022-10-03] MEDS ORDERED: ASPIRIN 81 MG PO STA (10:43)
--- NOTE | 2022-10-03 10:55 | ED ---
Chest Pain HPI - General Chief Complaint: Chest Pain Stated Complaint: Chest Pain Time Seen by Provider: 10/03/22 10:19 Source: patient Mode of arrival: ambulatory Limitations: no limitations - History of Present Illness Initial Comments: Patient is a 32-year-old male presenting to the emergency room with complaints of chest pain ongoing for approximately 3 days. He reports that the chest pain seemed to change to a squeezing-like chest pain today with pain radiating posterior to the his back along with some left arm pain ongoing today. He denies having any symptoms the previous 2 days. He also reports some dizziness this morning without any syncopal event. He has a slight headache along with some fatigue over the last 3 days as well. He has some shortness of breath with activity but denies any shortness of breath at rest. He denies any orthopnea, diaphoresis, lower extremity edema, abdominal pain, nausea, vomiting, fevers or chills. He does have a significant family cardiovascular history and consequently when he had chest pain earlier this year he underwent a cardiac catheterization with Dr. Stevenson which revealed no coronary artery disease. He has a past medical history of angina with elevated liver and hyperlipidemia. - Related Data Home Medications Medication Instructions Recorded Confirmed Aspirin EC [Ecotrin Low Dose] 81 mg PO DAILY 10/03/22 10/03/22 Rosuvastatin [Crestor] 20 mg PO DAILY 10/03/22 10/03/22 Allergies Allergy/AdvReac Type Severity Reaction Status Date / Time No Known Allergies Allergy Verified 10/03/22 11:46 Review of Systems ROS Statement: Those systems with pertinent positive or pertinent negative responses have been documented in the HPI. ROS Other: All systems not noted in ROS Statement are negative. EKG Findings - EKG Comments: EKG Findings:: EKG completed a 102 interpreted by me shows sinus rhythm with right bundle-branch block, ventricular rate 82 bpm, VA interval 170 ms, QRS du ration 130 ms, QT/QTC 373/412 ms, PRT axes 34, 81, 20 Past Medical History Past Medical History: Coronary Artery Disease (CAD) (.), Chest Pain / Angina, Hyperlipidemia Additional Past Medical History / Comment(s): Elevated LFTs History of Any Multi-Drug Resistant Organisms: None Reported Past Surgical History: Heart Catheterization Additional Past Surgical History / Comment(s): 10/2021 cardiac cath/normal Past Anesthesia/Blood Transfusion Reactions: Unable to Obtain Additional Past Anesthesia/Blood Transfusion Reaction / Comment(s): Pt has never had surgery. Past Psychological History: No Psychological Hx Reported Smoking Status: Never smoker Past Alcohol Use History: Occasional Past Drug Use History: None Reported - Past Family History Brother(s) Family Medical History: Myocardial Infarction ([place]) Additional Family Medical History / Comment(s): Brother had a Mi at the age of 34yrs. Mother Family Medical History: No Reported History Father Family Medical History: No Reported History Additional Family Medical History / Comment(s): Pt states he hasn't had contact with his father much family Family Medical History: Myocardial Infarction ([place]) Additional Family Medical History / Comment(s): Maternal side grandfather from a [place] at the age of 40yrs. General Exam Limitations: no limitations General appearance: alert, in no apparent distress Head exam: Present: atraumatic, normocephalic, normal inspection Eye exam: Present: normal appearance, PERRL, EOMI. Absent: scleral icterus, conjunctival injection, periorbital swelling ENT exam: Present: normal exam, mucous membranes moist Neck exam: Present: normal inspection, full ROM Respiratory exam: Present: normal lung sounds bilaterally. Absent: respiratory distress, wheezes, rales, rhonchi, stridor Cardiovascular Exam: Present: regular rate, normal rhythm, normal heart sounds. Absent: systolic murmur, diastolic murmur, rubs, gallop, clicks GI/Abdominal exam: Present: soft (He is), normal bowel sounds. Absent: distended, tenderness, guarding, rebound, rigid Rectal exam: Present: deferred Extremities exam: Present: normal inspection, full ROM, normal capillary refill. Absent: pedal edema, joint swelling Back exam: Present: normal inspection Neurological exam: Present: alert, oriented X3, CN II-XII intact Psychiatric exam: Present: normal affect, normal mood Skin exam: Present: warm, dry, intact, normal color. 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 Known strong cardiac family cardiovascular history with previous cardiac cath this year. Along with hyperlipidemia. Due to family history and hyperlipidemic history will proceed with ACS workup with EKG, chest x-ray, CMP, CBC, troponin, and magnesium. Previous cardiac catheterization from October 2021 reviewed. Will give 324 mg of aspirin along with morphine. Will hold nitrate at this time. EKG interpreted by me shows sinus rhythm with an unchanged right bundle branch block. Chest x-ray imaged intervertebral by me showing no acute cardiopulmonary processes, no infiltration or consolidation. CMP reveals chronically elevated liver enzymes otherwise no significant abnormalities. Troponin and magnesium normal. CBC within normal limits. Pain improved after morphine and aspirin. Due to hyperlipidemic and family history will plan for observation admission for trending troponins though given cardiac catheterization within the last year with no CAD doubt cardiovascular etiology. Spoke with Dr. Cohn on for [facility] regarding patient presentation findings and recommendation for observation admission. Previously evaluated by Dr. Stevenson. Will consult cardiology. No further orders received at this time. Will place admission orders. Case discussed with Dr. Whitman. Disposition Clinical Impression: Chest pain Disposition: ADMITTED IP TO THIS HOSP Condition: Stable Is patient prescribed a controlled substance at d/c from ED?: No Referrals: None,Stated [Primary Care Provider] - 1-2 days Time of Disposition: 12:39
[2022-10-03 11:21] LABS: Basophils # (A) 0.1 k/uL (0-0.2); Basophils % (A) 1 %; Eosinophils # (A) 0.1 k/uL (0-0.7); Eosinophils % (A) 1 %; HCT 47.7 % (39.0-53.0); HGB 17.1 gm/dL (13.0-17.5); Lymphocytes # (A) 1.6 k/uL (1.0-4.8); Lymphocytes % (A) 28 %; MCH 32.3 pg (25.0-35.0); MCHC 35.8 g/dL (31.0-37.0); MCV 90.1 fL (80.0-100.0); Mean Platelet Volume 10.3; Monocytes # (A) 0.3 k/uL (0-1.0); Monocytes % (A) 6 %; Neutrophils # (A) 3.6 k/uL (1.3-7.7); Neutrophils % (A) 62 %; Platelet Count 162 k/uL (150-450); RDW 12.3 % (11.5-15.5); WBC 5.8 k/uL (3.8-10.6)
--- NOTE | 2022-10-03 11:32 | XR ---
EXAMINATION TYPE: XR chest 2V DATE OF EXAM: 10/03/2022 11:25 AM COMPARISON: Chest radiographs from 11/23/2021 TECHNIQUE: XR chest 2V Frontal and lateral views of the chest. CLINICAL INDICATION:Male, 32 years old with history of Chest Pain; FINDINGS: Lungs/Pleura: There is no evidence of pleural effusion, focal consolidation, or pneumothorax. Pulmonary vascularity: Unremarkable. Heart/mediastinum: Cardiomediastinal silhouette is unremarkable. Musculoskeletal: No acute osseous pathology. IMPRESSION: No acute cardiopulmonary disease/process. No significant change from prior examination.
[2022-10-03 11:34] LABS: INR 0.9 (<1.2); Partial Thromboplastin Time 22.3 sec (22.0-30.0); Prothrombin Time 10.1 sec (9.0-12.0)
[2022-10-03 11:40] LABS: ALT 124 U/L (4-49); African American GFR (CKD) >90 (>60 ml/min/1.73 sqM); Albumin 4.8 g/dL (3.5-5.0); Anion Gap 9 mmol/L; Blood Urea Nitrogen 15 mg/dL (9-20); Calcium 9.4 mg/dL (8.4-10.2); Carbon Dioxide 27 mmol/L (22-30); Chloride 104 mmol/L (98-107); Glucose 101 mg/dL (74-99); Non-African American GFR(CKD) 89 (>60 ml/min/1.73 sqM); Sodium 140 mmol/L (137-145); Total Bilirubin 1.3 mg/dL (0.2-1.3); Total Protein 8.5 g/dL (6.3-8.2)
[2022-10-03 11:43] LABS: AST 109 U/L (17-59); Alkaline Phosphatase 61 U/L (38-126); Magnesium 1.9 mg/dL (1.6-2.3); Potassium 4.5 mmol/L (3.5-5.1)
[2022-10-03] MEDS ORDERED: NALOXONE 0.4 MG/ML 1 ML VIAL IV PRN (12:41)
--- NOTE | 2022-10-03 16:37 | P.HPIM ---
History of Present Illness H&P Date: 10/03/22 Patient is a 32-year-old male with PMH of alcohol abuse and dyslipidemia that presents the ED for chest pain. Patient reports chest pain that has been ongoing for the past 3 days. Patient reports his chest pain to be left-sided, squeezing like in nature, radiating to the back. This chest pain has been progressively getting worse over the past 3 days. Associated symptoms include shortness of breath. Today, he started to express lightheaded which prompted him to come to the ED. He denies any headache, lower extremity edema, nausea vomiting, fever or chills, cough, palpitations, changes in urination or bowel habits. No changes in appetite or weight. He denies any numbness/weakness/tingling of the extremities. In the ED, his vital signs are stable. CBC was unremarkable. INR was 0.9. CMP showed glucose 101, AST of 109, ALT of 124 and total protein of 8.5. Troponin was less than 0.012, EKG showing sinus rhythm with right bundle-branch block. COVID-19 negative. Chest x-ray negative. Patient is admitted for chest pain, rule out acute coronary syndrome and cardiology consultation. Family history includes myocardial infarction in his brother at the age of 34. Pertinent positives and negatives as discussed in HPI, a complete review of systems was performed and all other systems are negative. General: non toxic, no distress, appears at stated age Derm: warm, dry Head: atraumatic, normocephalic, symmetric Eyes: EOMI, no lid lag, anicteric sclera Mouth: no lip lesion, mucus membranes moist Cardiovascular: S1S2 reg, no murmur, positive posterior tibial pulse bilateral, Lungs: CTA bilateral, no rhonchi, no rales , no accessory muscle use Abdominal: soft, nontender to palpation, no guarding, no appreciable organomegaly Ext: no gross muscle atrophy, no edema, no contractures Neuro: no focal neuro deficits Psych: Alert, oriented, appropriate affect #Chest pain Patient had a recent cardiac cath in October 2021 which was negative for CAD. Obtain d-dimer. Trend troponin/EKG to rule out ACS. Telemetry monitoring. Cardiology consultation. #Transaminitis Likely related to dyslipidemia and history of alcohol abuse Liver ultrasound in February 2022 which showed hepatic steatosis. Continue to monitor. #Dyslipidemia Continue rosuvastatin. #History of alcohol abuse No signs of withdrawal. Continue to monitor #Obesity Patient would benefit from a structured weight loss program. DVT prophylaxis: Early ambulation Discussed with: Patient Anticipated discharge: 1-[address]: Home A total of 25 minutes was spent on the care of this complex patient more than 50% of the time was spent in counseling and care coordination. Patient names his mother decision maker if he can't make decisions for himself. Patient would like to be full code. Past Medical History Past Medical History: Coronary Artery Disease (CAD) (.), Chest Pain / Angina, Hyperlipidemia Additional Past Medical History / Comment(s): Elevated LFTs History of Any Multi-Drug Resistant Organisms: None Reported Past Surgical History: Heart Catheterization Additional Past Surgical History / Comment(s): 10/2021 cardiac cath/normal Past Anesthesia/Blood Transfusion Reactions: Unable to Obtain Additional Past Anesthesia/Blood Transfusion Reaction / Comment(s): Pt has never had surgery. Past Psychological History: No Psychological Hx Reported Smoking Status: Never smoker Past Alcohol Use History: Occasional Past Drug Use History: None Reported - Past Family History Brother(s) Family Medical History: Myocardial Infarction ([place]) Additional Family Medical History / Comment(s): Brother had a Mi at the age of 34yrs. Mother Family Medical History: No Reported History Father Family Medical History: No Reported History Additional Family Medical History / Comment(s): Pt states he hasn't had contact with his father much family Family Medical History: Myocardial Infarction ([place]) Additional Family Medical History / Comment(s): Maternal side grandfather from a [place] at the age of 40yrs. Medications and Allergies Home Medications Medication Instructions Recorded Confirmed Type Aspirin EC [Ecotrin Low Dose] 81 mg PO DAILY 10/03/22 10/03/22 History Rosuvastatin [Crestor] 20 mg PO DAILY 10/03/22 10/03/22 History Allergies Allergy/AdvReac Type Severity Reaction Status Date / Time No Known Allergies Allergy Verified 10/03/22 11:46 Physical Exam Vitals: Vital Signs Temp Pulse Pulse Resp BP Pulse Ox 10/03/22 16:00 65 18 126/76 98 10/03/22 14:23 70 18 126/80 96 10/03/22 10:58 83 83 18 134/81 97 10/03/22 10:13 98.1 F 82 18 155/91 96 Intake and Output 10/03/22 10/03/22 10/03/22 06:59 14:59 22:59 Other: Weight 88.451 kg Results CBC & Chem 7: 10/03/22 11:10 10/03/22 11:10 Labs: Abnormal Lab Results - Last 24 Hours (Table) 10/03/22 Range/Units 11:10 Glucose 101 H (74-99) mg/dL AST 109 H (17-59) U/L ALT 124 H (4-49) U/L Total Protein 8.5 H (6.3-8.2) g/dL
[2022-10-03] MEDS: MORPHINE SULFATE 2 MG/ML SYRINGE IVP PRN ×2 (17:04→21:09)
[2022-10-04] MEDS: MORPHINE SULFATE 2 MG/ML SYRINGE IVP PRN ×2 (02:44→06:33)
[2022-10-04 04:38] VITALS: TEMP 98.1
[2022-10-04 07:52] VITALS: BP 119/76; PULSE 58; RESP 16
[2022-10-04] MEDS ORDERED: ASPIRIN 81 MG PO SCH (09:00)
[2022-10-04] MEDS ORDERED: ATORVASTATIN 40 MG TAB PO SCH (09:00)
[2022-10-04 10:33] LABS: Chol/HDL Ratio 4.93 Ratio; LDL Cholesterol,Calculated 146.5 mg/dL (0.0-131.0)
--- NOTE | 2022-10-04 10:33 | P.CRDCN ---
History of Present Illness History of present illness: This is Dr. Greer dictating a consult on this patient The patient was interviewed and examined IMPRESSION / ASSESSMENT: Atypical chest discomfort with normal cardiac enzymes and no ST segment abnormalities Right bundle branch block at him on 12-lead EKG Tenderness in the fold of the pectoral muscle No chest wall tenderness Elevated blood pressure readings intermittently Normal coronary arteries by coronary angiography Elevated LVEDP on left heart cath Currently on rosuvastatin and aspirin Normal d-dimer PLAN: Patient reassured Lipid panel ordered Aspirin not indicated Continue rosuvastatin and explained the reason for rosuvastatin Home blood pressure monitoring explained to his Treat hypertension if confirmed Minimize alcohol intake Patient's LFTs are mildly abnormal, watch LFTs every 6 month. Patient has a history of pancreatitis May consider lowering lipid lowering agent dose if rising pattern is noted HPI Patient presented with left pectoral chest discomfort, laterally Chest discomfort on the lateral aspect of the thorax in the upper back Numbness tingling down the arm Normal cardiac enzymes Normal d-dimer No ST segment abnormalities on serial ECGs ROS: No fever chills or rigors, no cough, phlegm or expectoration, no nausea, vomiting or diarrhea, no hematuria, dysuria, no musculoskeletal complaints, no strokes or seizures, no skin lesions. EXAMINATION: Initial blood pressure elevated but now his blood pressures in the normal range Heart rate 7 the normal range Breath sounds are clear Heart sounds S1 and S2 are normal Tenderness of the pectoral muscle fold REVIEW OF LABS, ECG & MEDICAL DATA Normal d-dimer Normal troponins serially Mildly abnormal LFTs Past Medical History Past Medical History: Coronary Artery Disease (CAD) (.), Chest Pain / Angina, Hyperlipidemia Additional Past Medical History / Comment(s): Elevated LFTs History of Any Multi-Drug Resistant Organisms: None Reported Past Surgical History: Heart Catheterization Additional Past Surgical History / Comment(s): 10/2021 cardiac cath/normal Past Anesthesia/Blood Transfusion Reactions: Unable to Obtain Additional Past Anesthesia/Blood Transfusion Reaction / Comment(s): Pt has never had surgery. Past Psychological History: No Psychological Hx Reported Smoking Status: Never smoker Past Alcohol Use History: Occasional Past Drug Use History: None Reported - Past Family History Brother(s) Family Medical History: Myocardial Infarction ([place]) Additional Family Medical History / Comment(s): Brother had a Mi at the age of 34yrs. Mother Family Medical History: No Reported History Father Family Medical History: No Reported History Additional Family Medical History / Comment(s): Pt states he hasn't had contact with his father much family Family Medical History: Myocardial Infarction ([place]) Additional Family Medical History / Comment(s): Maternal side grandfather from a [place] at the age of 40yrs. Medications and Allergies Home Medications Medication Instructions Recorded Confirmed Type Aspirin EC [Ecotrin Low Dose] 81 mg PO DAILY 10/03/22 10/03/22 History Rosuvastatin [Crestor] 20 mg PO DAILY 10/03/22 10/03/22 History HYDROcodone/APAP 5-325MG [[place] 1 tab PO Q4HR PRN 3 Days #18 tab 10/04/22 Rx 5-325] Allergies Allergy/AdvReac Type Severity Reaction Status Date / Time No Known Allergies Allergy Verified 10/03/22 11:46 Physical Exam Vitals: Vital Signs Temp Pulse Pulse Pulse Resp BP BP 10/04/22 07:00 98.1 F 58 L 16 119/76 10/04/22 02:51 98.1 F 68 17 126/80 10/03/22 20:10 98.0 F 81 17 120/82 10/03/22 16:00 65 18 126/76 10/03/22 14:23 70 18 126/80 10/03/22 10:58 83 83 18 134/81 Pulse Ox 10/04/22 07:00 95 10/04/22 02:51 98 10/03/22 20:10 97 10/03/22 16:00 98 10/03/22 14:23 96 10/03/22 10:58 97 Intake and Output 10/03/22 10/04/22 10/04/22 22:59 06:59 14:59 Other: # Voids 1 1 Weight 88.451 kg Results 10/03/22 11:10 10/03/22 11:10 Cardiac Enzymes 10/03/22 10/03/22 10/03/22 Range/Units 11:10 11:10 15:08 AST 109 H (17-59) U/L Troponin I <0.012 <0.012 (0.000-0.034) ng/mL 10/03/22 Range/Units 18:15 AST (17-59) U/L Troponin I <0.012 (0.000-0.034) ng/mL Coagulation 10/03/22 Range/Units 11:10 PT 10.1 (9.0-12.0) sec APTT 22.3 (22.0-30.0) sec CBC 10/03/22 Range/Units 11:10 WBC 5.8 (3.8-10.6) k/uL RBC 5.30 (4.30-5.90) m/uL Hgb 17.1 (13.0-17.5) gm/dL Hct 47.7 (39.0-53.0) % Plt Count 162 (150-450) k/uL Comprehensive Metabolic Panel 10/03/22 Range/Units 11:10 Sodium 140 (137-145) mmol/L Potassium 4.5 (3.5-5.1) mmol/L Chloride 104 (98-107) mmol/L Carbon Dioxide 27 (22-30) mmol/L BUN 15 (9-20) mg/dL Creatinine 1.09 (0.66-1.25) mg/dL Glucose 101 H (74-99) mg/dL Calcium 9.4 (8.4-10.2) mg/dL AST 109 H (17-59) U/L ALT 124 H (4-49) U/L Alkaline Phosphatase 61 (38-126) U/L Total Protein 8.5 H (6.3-8.2) g/dL Albumin 4.8 (3.5-5.0) g/dL Intake and Output 10/03/22 10/04/22 10/04/22 22:59 06:59 14:59 Other: # Voids 1 1 Weight 88.451 kg 10/03/22 11:10 10/03/22 11:10
--- NOTE | 2022-10-04 12:03 | P.DS ---
Providers Date of admission: 10/03/22 12:51 Expected date of discharge: 10/04/22 Attending physician: Suzanne Cohn MD Consults: 10/03/22 12:41 Consult Physician Routine Consulting Provider: Aftab Stevenson Consult Reason/Comments: chest pain Do you want consulting provider notified?: Yes Primary care physician: Stated None Hospital Course: Patient is a 32-year-old male with PMH of alcohol abuse and dyslipidemia that presents the ED for chest pain. Patient reports chest pain that has been ongoing for the past 3 days. Patient reports his chest pain to be left-sided, squeezing like in nature, radiating to the back. This chest pain has been progressively getting worse over the past 3 days. Associated symptoms include shortness of breath. Today, he started to express lightheaded which prompted him to come to the ED. He denies any headache, lower extremity edema, nausea vomiting, fever or chills, cough, palpitations, changes in urination or bowel habits. No changes in appetite or weight. He denies any numbness/weakness/tingling of the extremities. In the ED, his vital signs are stable. CBC was unremarkable. INR was 0.9. CMP showed glucose 101, AST of 1 09, ALT of 124 and total protein of 8.5. Troponin was less than 0.012, EKG showing sinus rhythm with right bundle-branch block. COVID-19 negative. Chest x-ray negative. Patient is admitted for chest pain, rule out acute coronary syndrome and cardiology consultation. Family history includes myocardial infarction in his brother at the age of 34. Troponins were trended and ACS was ruled out. D-dimer was negative. Cardiology was consulted and recommended no further workup. His chest pain was attributed to musculoskeletal. Cardiology cleared for patient for discharge. Patient was seen and examined. No acute events overnight. Patient continues to report left-sided chest pain. Pain is relieved with morphine. General: non toxic, no distress, appears at stated age Derm: warm, dry Head: atraumatic, normocephalic, symmetric Eyes: EOMI, no lid lag, anicteric sclera Mouth: no lip lesion, mucus membranes moist Cardiovascular: S1S2 reg, no murmur Lungs: CTA bilateral, no rhonchi, no rales , no accessory muscle use Ext: no gross muscle atrophy, no edema, no contractures Neuro: no focal neuro deficits Psych: Alert, oriented, appropriate affect Discharge diagnosis: #Chest pain #Transaminitis #Dyslipidemia #History of alcohol abuse #Obesity Patient Condition at Discharge: Stable Plan - Discharge Summary Discharge Rx Participant: No New Discharge Prescriptions: New HYDROcodone/APAP 5-325MG [[place] 5-325] 1 tab PO Q4HR PRN 3 Days #18 tab PRN Reason: Pain Continue Rosuvastatin [Crestor] 20 mg PO DAILY Aspirin EC [Ecotrin Low Dose] 81 mg PO DAILY Discharge Medication List Aspirin EC [Ecotrin Low Dose] 81 mg PO DAILY 10/03/22 [History] Rosuvastatin [Crestor] 20 mg PO DAILY 10/03/22 [History] HYDROcodone/APAP 5-325MG [[place] 5-325] 1 tab PO Q4HR PRN 3 Days #18 tab 10/04/22 [Rx] Follow up Appointment(s)/Referral(s): None,Stated [Primary Care Provider] - 1 Week (PLEASE ESTABLISH WITH A PRIMARY CARE PHYSICIAN. LIST OF AREA PCP'S PROVIDED.) Patient Instructions/Handouts: How to Take a Blood Pressure (GEN), Low-Sodium Diet (DC) Discharge Disposition: HOME SELF-CARE
== END 2022-10-04 10:29 | disposition home or self-care (01) ==
LOC: EC 10:08 → 6NMEDSUR 12:51
PROVIDERS: ADMIT Family Medicine; ATTEND Family Medicine
DX: R07.89 Other chest pain (principal); I25.10 Atherosclerotic heart disease of native coronary artery without angina pectoris; E78.5 Hyperlipidemia, unspecified; I45.10 Unspecified right bundle-branch block; R03.0 Elevated blood-pressure reading, without diagnosis of hypertension; R79.89 Other specified abnormal findings of blood chemistry; R74.01 Elevation of levels of liver transaminase levels; F10.10 Alcohol abuse, uncomplicated; E66.9 Obesity, unspecified; Z79.82 Long term (current) use of aspirin; Z79.899 Other long term (current) drug therapy; Z20.822 Contact with and (suspected) exposure to COVID-19; Z82.49 Family history of ischemic heart disease and other diseases of the circulatory system
CPT/HCPCS: 96376 ×3; 96374; 99285; 36415; 93005; 85379; 80061; 80053; 83735; 84484; 85025; 85610; 85730; 87635; 71046; G0378 ×2; J2270 ×3

== ENCOUNTER 2023-08-20 11:07 | Emergency (ER) | payer OTHER ==
[2023-08-20] MEDS ORDERED: PANTOPRAZOLE 40 MG/10 ML VIAL IVP STA (12:19)
[2023-08-20] MEDS ORDERED: SODIUM CHLORIDE 0.9% 1,000 ML IV STA (12:19)
[2023-08-20] MEDS ORDERED: ONDANSETRON 4 MG/2 ML VIAL IVP STA (12:19)
--- NOTE | 2023-08-20 12:21 | ED ---
General Adult HPI - General Chief complaint: Abdominal Pain Stated complaint: abd pain, Time Seen by Provider: 08/20/23 12:05 Source: patient, RN notes reviewed, old records reviewed Mode of arrival: ambulatory Limitations: no limitations - History of Present Illness Initial comments: 33-year-old male presented for evaluation of epigastric abdominal pain which is been present for the past 24 hours. Patient states he has remote history of pancreatitis which was related to alcohol. He states that 2 days prior he did drink whiskey. He states this is typical for him. He denies vomiting. He reports pain specifically with eating or drinking. No lower abdominal pain. No fever. - Related Data Home Medications Medication Instructions Recorded Confirmed Aspirin EC [Ecotrin Low Dose] 81 mg PO DAILY 10/03/22 10/03/22 Rosuvastatin [Crestor] 20 mg PO DAILY 10/03/22 10/03/22 Previous Rx's Medication Instructions Recorded HYDROcodone/APAP 5-325MG [[place] 1 tab PO Q4HR PRN 3 Days #18 tab 10/04/22 5-325] Omeprazole [PriLOSEC] 20 mg PO AC-BID 30 Days #60 cap 08/20/23 Allergies Allergy/AdvReac Type Severity Reaction Status Date / Time No Known Allergies Allergy Verified 08/20/23 11:30 Review of Systems ROS Statement: Those systems with pertinent positive or pertinent negative responses have been documented in the HPI. ROS Other: All systems not noted in ROS Statement are negative. Past Medical History Past Medical History: Coronary Artery Disease (CAD), Chest Pain / Angina, Hyperlipidemia Additional Past Medical History / Comment(s): Elevated LFTs History of Any Multi-Drug Resistant Organisms: None Reported Past Surgical History: Heart Catheterization Additional Past Surgical History / Comment(s): 10/2021 cardiac cath/normal Past Anesthesia/Blood Transfusion Reactions: Unable to Obtain Additional Past Anesthesia/Blood Transfusion Reaction / Comment(s): Pt has never had surgery. Past Psychological History: No Psychological Hx Reported Smoking Status: Never smoker Past Alcohol Use History: Occasional Past Drug Use History: None Reported - Past Family History Brother(s) Family Medical History: Myocardial Infarction (RI) Additional Family Medical History / Comment(s): Brother had a Mi at the age of 34yrs. Mother Family Medical History: No Reported History Father Family Medical History: No Reported History Additional Family Medical History / Comment(s): Pt states he hasn't had contact with his father much family Family Medical History: Myocardial Infarction (RI) Additional Family Medical History / Comment(s): Maternal side grandfather from a RI at the age of 40yrs. General Exam Limitations: no limitations General appearance: alert, in no apparent distress Head exam: Present: atraumatic, normocephalic Eye exam: Present: normal appearance, PERRL ENT exam: Present: normal exam Neck exam: Present: normal inspection. Absent: tenderness, meningismus Respiratory exam: Present: normal lung sounds bilaterally. Absent: respiratory distress, wheezes Cardiovascular Exam: Present: regular rate, normal rhythm GI/Abdominal exam: Present: soft, tenderness (Epigastric). Absent: distended, guarding, rebound Extremities exam: Present: normal inspection, normal capillary refill. Absent: pedal edema Neurological exam: Present: alert, oriented X3, CN II-XII intact. Absent: motor sensory deficit Psychiatric exam: Present: normal affect, normal mood Skin exam: Present: warm, dry, intact. Absent: cyanosis, diaphoretic Course Vital Signs 08/20/23 08/20/23 11:28 14:18 Temperature 98.5 F 97.9 F Pulse Rate 64 68 Respiratory 18 18 Rate Blood Pressure 173/115 143/80 O2 Sat by Pulse 97 97 Oximetry - Reevaluation(s) Reevaluation #1: 08/20/23 15:00 Patient not driving, states he is getting a ride Medical Decision Making - Medical Decision Making Was pt. sent in by a medical professional or institution (, PA, CAGE TENDER, urgent care, hospital, or longterm...) When possible be specific @ -No Did you speak to anyone other than the patient for history (EMS, parent, family, police, friend...)? What history was obtained from this source @ -No Did you review nursing and triage notes (agree or disagree)? Why? @ -I reviewed and agree with nursing and triage notes Were old charts reviewed (outside hosp., previous admission, EMS record, old EKG, old radiological studies, urgent care reports/EKG's, longterm records)? Report findings @ -No old charts were reviewed Differential Diagnosis (chest pain, altered mental status, abdominal pain women, abdominal pain men, vaginal bleeding, weakness, fever, dyspnea, syncope, headache, dizziness, GI bleed, back pain, seizure, CVA, palpatations, mental health, musculoskeletal)? @ -Differential Abdominal Pain Men: Appendicitis, cholecystitis, diverticulosis, ischemic bowel, pancreatitis, hepatitis, UTI, gastroenteritis, AAA, incarcerated hernia, bowel obstruction, constipation, inflammatory bowel, hepatitis, peptic ulcer disease, splenic infarction, perforated viscus, testicular torsion, this is not meant to be an all-inclusive list EKG interpreted by me (3pts min.). @ -As above X-rays interpreted by me (1pt min.). @ -None done CT interpreted by me (1pt min.). @ -None done U/S interpreted by me (1pt. min.). @ -[Ultrasound of the gallbladder negative for acute pathology What testing was considered but not performed or refused? (CT, X-rays, U/S, labs)? Why? @ -None What meds were considered but not given or refused? Why? @ -None Did you discuss the management of the patient with other professionals (professionals i.e. , PA, CAGE TENDER, lab, RT, psych nurse, dialysis social worker, industrial insulator, teacher, radio electronics officer, rehabilitation case coordinator)? Give summary @ -No Was smoking cessation discussed for >3mins.? @ -No Was critical care preformed (if so, how long)? @ -No Were there social determinants of health that impacted care today? How? (Homelessness, low income, unemployed, alcoholism, drug addiction, transportation, low edu. Level, literacy, decrease access to med. care, half-way, rehab)? @ -No Was there de-escalation of care discussed even if they declined (Discuss DNR or withdrawal of care, Hospice)? DNR status @ -No What co-morbidities impacted this encounter? (DM, HTN, Smoking, COPD, CAD, Cancer, CVA, ARF, Chemo, Hep., AIDS, mental health diagnosis, sleep apnea, morbid obesity)? @ -[Alcohol use history of pancreatitis Was patient admitted / discharged? Hospital course, mention meds given and route, prescriptions, significant lab abnormalities, going to OR and other pertinent info. @ -[33-year-old male presenting with epigastric pain. Patient does have tenderness on exam. He has normal CBC, no leukocytosis, stable hemoglobin, normal electrolytes. He has some mild transaminitis, negative lipase. Ultrasound was performed which was negative for acute Pathology. Likely has g astritis secondary to alcohol use. He is instructed to abstain from alcohol, take proton pump inhibitor. He will follow-up with gastroenterology and he will return the emergency department with worsening or changing symptoms. Undiagnosed new problem with uncertain prognosis? @ -No Drug Therapy requiring intensive monitoring for toxicity (Heparin, Nitro, Insulin, Cardizem)? @ -No Were any procedures done? @ -No Diagnosis/symptom? @ -[Abdominal pain Acute, or Chronic, or Acute on Chronic? @ Acute Uncomplicated (without systemic symptoms) or Complicated (systemic symptoms)? @ -default Side effects of treatment? @ -No Exacerbation, Progression, or Severe Exacerbation? @ -No Poses a threat to life or bodily function? How? (Chest pain, [place], [place], pneumonia, PE, COPD, DKA, ARF, appy, cholecystitis, CVA, Diverticulitis, Homicidal, Suicidal, threat to staff... and all critical care pts) @ -low Risk at this time - Lab Data Result diagrams: 08/20/23 12:24 08/20/23 12:24 Lab Results 08/20/23 08/20/23 08/20/23 Range/Units 12:24 12:24 12:24 WBC 6.5 (3.8-10.6) k/uL RBC 5.57 (4.30-5.90) m/uL Hgb 17.5 (13.0-17.5) gm/dL Hct 50.3 (39.0-53.0) % MCV 90.3 (80.0-100.0) fL MCH 31.4 (25.0-35.0) pg MCHC 34.7 (31.0-37.0) g/dL RDW 12.6 (11.5-15.5) % Plt Count 197 (150-450) k/uL MPV 8.5 Neutrophils % 59 % Lymphocytes % 34 % Monocytes % 4 % Eosinophils % 1 % Basophils % 0 % Neutrophils # 3.8 (1.3-7.7) k/uL Lymphocytes # 2.2 (1.0-4.8) k/uL Monocytes # 0.3 (0-1.0) k/uL Eosinophils # 0.1 (0-0.7) k/uL Basophils # 0.0 (0-0.2) k/uL PT 10.5 (10.0-12.5) sec INR 0.9 (<1.2) APTT 23.9 (22.0-30.0) sec Sodium 139 (137-145) mmol/L Potassium 4.5 (3.5-5.1) mmol/L Chloride 98 (98-107) mmol/L Carbon Dioxide 30 (22-30) mmol/L Anion Gap 11 mmol/L BUN 15 (9-20) mg/dL Creatinine 0.90 (0.66-1.25) mg/dL Est GFR (CKD-EPI)AfAm >90 (>60 ml/min/1.73 sqM) Est GFR (CKD-EPI)NonAf >90 (>60 ml/min/1.73 sqM) Glucose 101 H (74-99) mg/dL Plasma Lactic Acid Martin (0.7-2.0) mmol/L Calcium 10.5 H (8.4-10.2) mg/dL Total Bilirubin 1.1 (0.2-1.3) mg/dL AST 95 H (17-59) U/L ALT 198 H (4-49) U/L Alkaline Phosphatase 69 (38-126) U/L Troponin I (0.000-0.034) ng/mL Total Protein 9.2 H (6.3-8.2) g/dL Albumin 5.1 H (3.5-5.0) g/dL Amylase 69 (30-110) U/L Lipase 232 (23-300) U/L 08/20/23 08/20/23 Range/Units 12:24 12:24 WBC (3.8-10.6) k/uL RBC (4.30-5.90) m/uL Hgb (13.0-17.5) gm/dL Hct (39.0-53.0) % MCV (80.0-100.0) fL MCH (25.0-35.0) pg MCHC (31.0-37.0) g/dL RDW (11.5-15.5) % Plt Count (150-450) k/uL MPV Neutrophils % % Lymphocytes % % Monocytes % % Eosinophils % % Basophils % % Neutrophils # (1.3-7.7) k/uL Lymphocytes # (1.0-4.8) k/uL Monocytes # (0-1.0) k/uL Eosinophils # (0-0.7) k/uL Basophils # (0-0.2) k/uL PT (10.0-12.5) sec INR (<1.2) APTT (22.0-30.0) sec Sodium (137-145) mmol/L Potassium (3.5-5.1) mmol/L Chloride (98-107) mmol/L Carbon Dioxide (22-30) mmol/L Anion Gap mmol/L BUN (9-20) mg/dL Creatinine (0.66-1.25) mg/dL Est GFR (CKD-EPI)AfAm (>60 ml/min/1.73 sqM) Est GFR (CKD-EPI)NonAf (>60 ml/min/1.73 sqM) Glucose (74-99) mg/dL Plasma Lactic Acid Martin 1.3 (0.7-2.0) mmol/L Calcium (8.4-10.2) mg/dL Total Bilirubin (0.2-1.3) mg/dL AST (17-59) U/L ALT (4-49) U/L Alkaline Phosphatase (38-126) U/L Troponin I <0.012 (0.000-0.034) ng/mL Total Protein (6.3-8.2) g/dL Albumin (3.5-5.0) g/dL Amylase (30-110) U/L Lipase (23-300) U/L Disposition Clinical Impression: Abdominal pain, Elevated liver enzymes Disposition: HOME SELF-CARE Condition: Fair Instructions (If sedation given, give patient instructions): Acute Abdominal Pain (ED) Prescriptions: Omeprazole [PriLOSEC] 20 mg PO AC-BID 30 Days #60 cap Is patient prescribed a controlled substance at d/c from ED?: No Referrals: None,Stated [Primary Care Provider] - 1-2 days Heidy Miranda MD [STAFF PHYSICIAN] - 1-2 days Time of Disposition: 15:00
[2023-08-20 12:44] LABS: Basophils % (A) 0 %; Eosinophils # (A) 0.1 k/uL (0-0.7); Eosinophils % (A) 1 %; HCT 50.3 % (39.0-53.0); HGB 17.5 gm/dL (13.0-17.5); Lymphocytes # (A) 2.2 k/uL (1.0-4.8); Lymphocytes % (A) 34 %; MCH 31.4 pg (25.0-35.0); MCHC 34.7 g/dL (31.0-37.0); MCV 90.3 fL (80.0-100.0); Mean Platelet Volume 8.5; Monocytes # (A) 0.3 k/uL (0-1.0); Monocytes % (A) 4 %; Neutrophils # (A) 3.8 k/uL (1.3-7.7); Neutrophils % (A) 59 %; Platelet Count 197 k/uL (150-450); RBC 5.57 m/uL (4.30-5.90); RDW 12.6 % (11.5-15.5); WBC 6.5 k/uL (3.8-10.6)
[2023-08-20 12:51] LABS: INR 0.9 (<1.2); Partial Thromboplastin Time 23.9 sec (22.0-30.0); Prothrombin Time 10.5 sec (10.0-12.5)
[2023-08-20 12:57] LABS: ALT 198 U/L (4-49); AST 95 U/L (17-59); African American GFR (CKD) >90 (>60 ml/min/1.73 sqM); Albumin 5.1 g/dL (3.5-5.0); Alkaline Phosphatase 69 U/L (38-126); Amylase 69 U/L (30-110); Anion Gap 11 mmol/L; Blood Urea Nitrogen 15 mg/dL (9-20); Calcium 10.5 mg/dL (8.4-10.2); Carbon Dioxide 30 mmol/L (22-30); Chloride 98 mmol/L (98-107); Glucose 101 mg/dL (74-99); Lipase 232 U/L (23-300); Non-African American GFR(CKD) >90 (>60 ml/min/1.73 sqM); Potassium 4.5 mmol/L (3.5-5.1); Sodium 139 mmol/L (137-145); Total Bilirubin 1.1 mg/dL (0.2-1.3); Total Protein 9.2 g/dL (6.3-8.2)
[2023-08-20] MEDS ORDERED: HYDROmorphone 0.5 MG/0.5 ML SYRINGE IVP STA (14:21)
[2023-08-20 14:22] VITALS: TEMP 97.9
--- NOTE | 2023-08-20 14:46 | US ---
EXAMINATION TYPE: US gallbladder DATE OF EXAM: 08/20/2023 COMPARISON: Abdominal ultrasound 03/16/2022 CLINICAL INDICATION: Male, 33 years old with history of Epigastric abdominal pain; Pain. Patient sta yee he is unable to eat. Patient states having a hx of pancreatitis. TECHNIQUE: Multiple sonographic images of the right upper quadrant are obtained. FINDINGS: EXAM MEASUREMENTS: Liver Length: 17.9 cm Gallbladder Wall: 0.1 cm CBD: 0.2 cm Right Kidney: 9.7 x5.2 x 5.7 cm Pancreas: Body and tail obscured by overlying bowel gas. Echogenic in appearance. Liver: Echogenic, coarse, upper limits of normal in size Gallbladder: No stones or wall thickening visualized Evidence for sonographic Corea's sign: neg CBD: limited due to bowel gas Right Kidney: No hydronephrosis or masses seen Limited visualization of the pancreas due to overlying bowel gas. Liver is echogenic with coarsened e chotexture. No focal hepatic lesion. Gallbladder is unremarkable without evidence of wall thickening, stones, or pericholecystic fluid. Negative sonographic Corea sign. Common bile duct is not visualiz ed due to overlying bowel gas. Right kidney is unremarkable without evidence of hydronephrosis, nephr olithiasis, or solid mass. IMPRESSION: 1. No acute process. 2. Hepatic steatosis.
[2023-08-20 15:41] VITALS: BP 158/80; PULSE 84; RESP 22
== END 2023-08-20 15:30 | disposition home or self-care (01) ==
LOC: EC 11:07
DX: R10.13 Epigastric pain (principal); R74.01 Elevation of levels of liver transaminase levels; E78.5 Hyperlipidemia, unspecified; I25.10 Atherosclerotic heart disease of native coronary artery without angina pectoris; Z79.899 Other long term (current) drug therapy
CPT/HCPCS: 36415; 80053; 82150; 83605; 83690; 84484; 85025; 85610; 85730; 76705; 99284; 96374; 96375 ×2; 96361; J2405; C9113; J1170

== ENCOUNTER 2024-08-18 21:38 | Emergency (ER) | payer SELFPAY ==
[2024-08-18 21:49] VITALS: TEMP 99
--- NOTE | 2024-08-18 22:00 | ED ---
Chest Pain HPI - General Source: patient, RN notes reviewed Mode of arrival: ambulatory Limitations: no limitations <Cristel Ca - Last Filed: 08/18/24 21:59> - History of Present Illness MD Complaint: chest pain Onset/Timin -: week(s) Onset: during rest Pain Location: left chest Pain Radiation: none Severity: moderate Quality: aching Consistency: constant Improves With: nothing Worsens With: nothing Anginal Symptoms: nausea <Miguel Hines - Last Filed: 08/19/24 02:09> - General Chief Complaint: Chest Pain Stated Complaint: Chest Pain Time Seen by Provider: 08/18/24 21:59 - History of Present Illness Initial Comments: Note: 34-year-old male presented to ER with a chief complaint of chest discomfort. He states has been going on for the past 7 days. He describes it as a heavy, deep/squeezing discomfort. He denies any shortness of breath. He does report dizziness today. Reports he had a cardiac catheterization in November 2021. Patient also reports he is having epigastric abdominal pain and believes he is having a pancreatitis flareup. Abdominal pain started 2 days ago worse today. No fevers. (Cristel Ca) Agree with above (Miguel Hines) - Related Data Home Medications Medication Instructions Recorded Confirmed Aspirin EC [Ecotrin Low Dose] 81 mg PO DAILY 10/03/22 10/03/22 Rosuvastatin [Crestor] 20 mg PO DAILY 10/03/22 10/03/22 Previous Rx's Medication Instructions Recorded HYDROcodone/APAP 5-325MG [[place] 1 tab PO Q4HR PRN 3 Days #18 tab 10/04/22 5-325] Omeprazole [PriLOSEC] 20 mg PO AC-BID 30 Days #60 cap 08/20/23 HYDROcodone/APAP 5-325MG [[place] 1 tab PO Q4HR PRN 3 Days #18 tab 08/19/24 5-325] Allergies Allergy/AdvReac Type Severity Reaction Status Date / Time No Known Allergies Allergy Verified 08/18/24 21:48 Review of Systems ROS Other: All systems not noted in ROS Statement are negative. <Cristel Ca - Last Filed: 08/18/24 21:59> ROS Other: All systems not noted in ROS Statement are negative. <Miguel Hines - Last Filed: 08/19/24 02:09> ROS Statement: Those systems with pertinent positive or pertinent negative responses have been documented in the HPI. EKG Findings - EKG Results: EKG: interpreted by ERMD, sinus rhythm, normal axis EKG shows: tachycardia (108) - Blocks, [place], Hypertrophy, ST Abn: AV and intraventricular conduction: right bundle branch block (fixed/intermittent, complete/incomplete) <FloraMiguel - Last Filed: 08/19/24 02:09> Past Medical History Past Medical History: Coronary Artery Disease (CAD), Chest Pain / Angina, Hyperlipidemia Additional Past Medical History / Comment(s): Elevated LFTs History of Any Multi-Drug Resistant Organisms: None Reported Past Surgical History: Heart Catheterization Additional Past Surgical History / Comment(s): 10/2021 cardiac cath/normal Past Anesthesia/Blood Transfusion Reactions: Unable to Obtain Additional Past Anesthesia/Blood Transfusion Reaction / Comment(s): Pt has never had surgery. Past Psychological History: No Psychological Hx Reported Smoking Status: Never smoker Past Alcohol Use History: Rare Past Drug Use History: None Reported - Past Family History Brother(s) Family Medical History: Myocardial Infarction ([place]) Additional Family Medical History / Comment(s): Brother had a Mi at the age of 34yrs. Mother Family Medical History: No Reported History Father Family Medical History: No Reported History Additional Family Medical History / Comment(s): Pt states he hasn't had contact with his father much family Family Medical History: Myocardial Infarction (SD) Additional Family Medical History / Comment(s): Maternal side grandfather from a [place] at the age of 40yrs. <Cristel Ca - Last Filed: 08/18/24 21:59> General Exam Limitations: no limitations <Cristel Ca - Last Filed: 08/18/24 21:59> - General Exam Comments Initial Comments: Visual Physical Exam Vital signs reviewed General: Well-appearing, nontoxic, no acute distress. Head: Normocephalic, atraumatic Eyes: PERRLA, EOMI ENT: Airway patent Chest: Nonlabored breathing Skin: No visual rash, normal skin tone Neuro: Alert and oriented 3 Musculoskeletal: No gross abnormalities (Cristel Ca) Course Vital Signs 08/18/24 08/18/2424 21:47 22:30 22:45 Temperature 99 F Pulse Rate 110 H 83 96 Respiratory 16 18 18 Rate Blood Pressure 161/90 207/134 137/91 O2 Sat by Pulse 99 99 97 Oximetry 08/19/24 08/19/24 00:00 01:08 Temperature Pulse Rate 89 89 Respiratory 18 18 Rate Blood Pressure 130/86 139/91 O2 Sat by Pulse 97 98 Oximetry Chest Pain MDM <Cristel Ca - Last Filed: 08/18/24 21:59> <Miguel Hines - Last Filed: 08/19/24 02:09> - MDM I performed the quick note portion of this chart. Electronically signed by Cristel Ca PA-C (Cristel Ca) The patient had chest x-ray that I interpreted as negative for acute infiltrate, pneumothorax, congestive heart failure. (Miguel Hines) Disposition <Cristel Ca - Last Filed: 08/18/24 21:59> Is patient prescribed a controlled substance at d/c from ED?: Yes When asked, does pt state using other controlled substances?: No If prescribed controlled substance>3 days was MAPS reviewed?: Prescribed <3 Days If opioid is for acute pain is fill amount 7 days or less?: Yes If Rx opioid, was Start Talking consent form obtained?: Yes <Miguel Hines - Last Filed: 08/19/24 02:09> Clinical Impression: Acute pancreatitis Disposition: HOME SELF-CARE Condition: Good Instructions (If sedation given, give patient instructions): Pancreatitis (ED) Prescriptions: HYDROcodone/APAP 5-325MG [[place] 5-325] 1 tab PO Q4HR PRN 3 Days #18 tab PRN Reason: Pain Referrals: None,Stated [Primary Care Provider] - 1-2 days
--- NOTE | 2024-08-18 22:13 | XR ---
EXAMINATION TYPE: XR chest 2V DATE OF EXAM: 08/18/2024 COMPARISON: Chest x-ray October 03, 2022 HISTORY: Chest pain TECHNIQUE: Frontal and lateral views of the chest are obtained. FINDINGS: There is no focal air space opacity, pleural effusion, or pneumothorax seen. The cardiac silhouette size is stable and within normal limits. The osseous structures are intact. IMPRESSION: No acute process. [facility], , 08/18/2024 10:10 PM
[2024-08-18] MEDS: MORPHINE SULFATE 4 MG/ML SYRINGE IV STA (22:52)
[2024-08-18 22:54] LABS: Basophils % (A) 0 %; Eosinophils # (A) 0.1 k/uL (0-0.7); Eosinophils % (A) 1 %; HCT 49.8 % (39.0-53.0); HGB 16.7 gm/dL (13.0-17.5); Lymphocytes % (A) 19 %; MCHC 33.5 g/dL (31.0-37.0); MCV 92.7 fL (80.0-100.0); Mean Platelet Volume 7.8; Monocytes # (A) 0.5 k/uL (0-1.0); Monocytes % (A) 5 %; Neutrophils # (A) 7.5 k/uL (1.3-7.7); Neutrophils % (A) 74 %; Platelet Count 220 k/uL (150-450); RBC 5.37 m/uL (4.30-5.90); RDW 12.6 % (11.5-15.5); WBC 10.2 k/uL (3.8-10.6)
[2024-08-18] MEDS: SODIUM CHLORIDE 0.9% 1,000 ML IV ONE (22:57)
[2024-08-18 23:01] VITALS: RESP 18
[2024-08-18 23:02] LABS: INR 1.1 (<1.2); Partial Thromboplastin Time 23.6 sec (22.0-30.0); Prothrombin Time 11.6 sec (10.0-12.5)
[2024-08-18 23:11] LABS: ALT 154 U/L (4-49); AST 105 U/L (17-59); African American GFR (CKD) >90 (>60 ml/min/1.73 sqM); Albumin 5.1 g/dL (3.5-5.0); Alkaline Phosphatase 83 U/L (38-126); Amylase 71 U/L (30-110); Anion Gap 13 mmol/L; Blood Urea Nitrogen 12 mg/dL (9-20); Carbon Dioxide 25 mmol/L (22-30); Chloride 102 mmol/L (98-107); Glucose 102 mg/dL (74-99); Lipase 712 U/L (23-300); Magnesium 1.5 mg/dL (1.6-2.3); Non-African American GFR(CKD) >90 (>60 ml/min/1.73 sqM); Potassium 3.7 mmol/L (3.5-5.1); Sodium 140 mmol/L (137-145); Total Bilirubin 1.6 mg/dL (0.2-1.3); Total Protein 8.5 g/dL (6.3-8.2)
[2024-08-18] MEDS: MAGNESIUM SULFATE-D5W PMX 1 GM in DEXTROSE/WATER 1 100ML.BAG IVPB ONE (23:30)
[2024-08-19] MEDS: HYDROmorphone 1 MG/ML 1 ML SYRINGE IVP STA (01:08)
[2024-08-19 01:50] LABS: Amphetamine Screen,Urine Not Detected (NotDetected); Barbiturate Screen,Urine Not Detected (NotDetected); Benzodiazepines Screen,Urine Not Detected (NotDetected); Cocaine Screen,Urine Not Detected (NotDetected); Methadone Screen, Urine Not Detected (NotDetected); Opiate Screen,Urine Detected (NotDetected); Oxycodone Screen, Urine Not Detected (NotDetected); Phencyclidine Screen,Urine Not Detected (NotDetected); Tricyclic Antidepressant,Urine Not Detected (NotDetected); Urn Cannabinoid Scrn Detected (NotDetected)
[2024-08-19 02:06] VITALS: BP 150/74; PULSE 75
== END 2024-08-19 02:20 | disposition home or self-care (01) ==
LOC: EC 21:38
CPT/HCPCS: 36415; 71046; 80053; 80306; 82150; 83690; 83735; 84484; 85025; 85610; 85730; 93005; 96361; 96365; 96375; 99285